=== PATIENT | female | born 2000 | race African-American/Black ===

== ENCOUNTER 2022-02-23 21:21 | Emergency (ER) | payer OTHER, SELFPAY ==
--- NOTE | ~2022-02-23 | XR_ITS ---
EXAMINATION: XR chest 1V portable DATE: 02/23/2022 23:55 INDICATION: COVID positive TECHNIQUE: frontal view of the chest was obtained. COMPARISON: None FINDINGS: The lungs are clear with no focal airspace opacities, pulmonary edema, pleural effusion or pneumothor ax. The cardiomediastinal silhouette is normal. Visualized bones and soft tissues are unremarkable. IMPRESSION: 1. Normal chest radiograph. Reviewed, dictated and finalized at location A. IMPRESSION: 1. Normal chest radiograph.
[2022-02-23 21:31] VITALS: BP 125/84; PULSE 81; RESP 19; TEMP 37.2; O2SAT 100
--- NOTE | 2022-02-23 23:18 | PC.NURSE ---
Assumed care of pt, pt is alert and upright on stretcher. Lights dimmed. Discussed POC.
[2022-02-23 23:41] LABS: SARS-CoV-2 RNA PCR Positive
[2022-02-23] MEDS: SODIUM CHLORIDE 0.9% IV 1,000 ML 999 ML IV CONT (23:57)
[2022-02-23] MEDS: KETOROLAC 30 MG/ML VIAL (*BKC) IV PUSH (23:57)
[2022-02-24 00:01] LABS: Basophils Percent Auto 0.2 % (0.2-1.2); Eosinophils Percent Auto 0.4 % (0-4.4); Hemoglobin 12.7 g/dL (12.0-15.0); Immature Granulocyte Absolute 0.02 K/mm3 (0.00-0.031); Immature Granulocyte Percent A 0.2 % (0-0.5); Lymphocytes Percent Auto 3.3 % (18.3-44.2); Mean Corpuscular HGB Conc 34.3 g/dl (32-36); Mean Corpuscular Hemoglobin 30.8 pg (26-34); Mean Corpuscular Volume 89.6 fl (80-100); Mean Platelet Volume 9.9 fl (7.4-10.4); Monocytes Absolute Auto 1.6 K/mm3 (0.1-0.6); Monocytes Percent Auto 18.2 % (2.6-8.5); Neutrophils Percent Auto 77.7 % (45.5-73.1); Platelet Count Result 253 k/mm3 (150-375); Red Blood Count 4.13 M/mm3 (4.2-5.4); Red Cell Distribution Width 13.2 % (11.5-14.5)
[2022-02-24 00:16] LABS: Alanine Aminotransferase 21 U/L (6-35); Albumin Level 4.6 g/dL (3.5-5.1); Alkaline Phosphatase 79 U/L (38-126); Anion Gap 10 mmol/L (8-16); Aspartate Amino Transferase 31 U/L (14-36); Bilirubin,Total 0.5 mg/dL (0.2-1.3); Blood Urea Nitrogen 9 mg/dL (7-17); Calcium 9.5 mg/dL (8.4-10.2); Carbon Dioxide 20 mmol/L (22-30); Chloride 106 mmol/L (98-107); Estimated CRCL calculation 90 ml/min; Estimated Glomerular Filt Rate > 60; Glucose 89 mg/dL (65-110); Potassium 3.9 mmol/L (3.4-5.0); Sodium 136 mmol/L (137-145)
--- NOTE | 2022-02-24 00:20 | ED.GENADULT ---
HPI - General Adult General Chief complaint: Headache Stated complaint: bodyache, headache Time Seen by Provider: 02/23/22 22:42 Source: patient Mode of arrival: ambulatory Limitations: no limitations History of Present Illness HPI narrative: Patient is a 21-year-old female who presents to the ED with report of headache and myalgias. Patient reports she woke up this morning feeling unwell. She reports having a headache and diffuse pain throughout her body. She has not tried anything for symptoms at home. She denies any fever, chills, vision changes, dizziness, lightheadedness, sore throat, rhinorrhea, chest congestion, cough, abdominal pain, nausea, vomiting, urinary symptoms, CP, SOB. Denies any recent sick contacts. She is not vaccinated for COVID. Related Data Allergies Allergy/AdvReac Type Severity Reaction Status Date / Time morphine Allergy Hives Verified 02/23/22 23:55 Review of Systems Review of Systems: CONSTITUTIONAL: Denies fever, chills, or sweats. EYES: Denies visual changes. ENT: Denies rhinorrhea, congestion, sore throat. CARDIOVASCULAR: Denies chest pain. RESPIRATORY: Denies cough or dyspnea. GASTROINTESTINAL: Denies abdominal pain, nausea, vomiting, or diarrhea. GENITOURINARY: Denies dysuria or hematuria. MUSCULOSKELETAL: Reports diffuse myalgias. NEUROLOGIC: Reports EPSTEIN. Denies dizziness, lightheadedness, numbness, or weakness. All systems reviewed & are unremarkable except as noted in HPI and below PMFSH Past Medical History Medical History (Updated 02/24/22 @ 00:24 by Matilde Gray PA-C) Genital herpes Surgical History Surgical History (Updated 02/24/22 @ 00:21 by Matilde Gray PA-C) No pertinent past surgical history Social History Social History (Updated 02/24/22 @ 00:21 by Matilde Gray PA-C) Smoking status: Never smoker Substance use: current Substance use type: marijuana Exam Narrative: GENERAL: Well appearing, well-nourished, non-toxic, in mild acute distress. HEAD: Normocephalic, atraumatic. EYES: PERRL/EOMI, conjunctivae clear bilaterally. THROAT: Pharynx clear, no exudate. MMs moist. NECK: Supple. No adenopathy, no masses. No midline spinal tenderness. No meningeal signs. RESPIRATORY: Airway patent, respirations nonlabored. Clear to auscultation bilaterally, no rales, rhonchi, wheezing. CARDIOVASCULAR: Regular rate and rhythm without murmurs, rubs, or gallops. Peripheral pulses 2+ and equal bilaterally. ABDOMINAL: Soft, nontender, nondistended, no hepatosplenomegaly. Normoactive BS. MUSCULOSKELETAL: Moves all extremities. Strength/ROM intact without gross deformities. SKIN: Warm, dry, normal color. No rashes. NEURO: A&O X3. Speech clear. Cranial nerves II-XII grossly intact. Steady gait. No ataxic movements. PSYCHIATRIC: Appropriate mood and affect. Normal interaction. Course Vital Signs Vital signs: Vital Signs Temperature 98.9 F 02/23/22 21:31 Pulse Rate 81 02/23/22 21:31 Respiratory Rate 19 02/23/22 21:31 Blood Pressure 125/84 02/23/22 21:31 Pulse Oximetry 100 02/23/22 21:31 Oxygen Delivery Room Air 02/23/22 21:31 Temperature 98.9 F 02/23/22 21:31 Pulse Rate 74 02/24/22 00:36 Respiratory Rate 15 02/24/22 00:36 Blood Pressure 116/73 02/24/22 00:36 Pulse Oximetry 100 02/24/22 00:36 Oxygen Delivery Room Air 02/23/22 21:31 Medical Decision Making MDM Narrative Medical decision making narrative: Patient presented to ED with report of headache and diffuse myalgias. Vital signs stable upon arrival. Patient writhing around in bed. Had not taken anything for symptoms prior to arrival. No other symptoms reported. COVID testing in ED positive. Basic blood work obtained and unremarkable. Does show lymphopenia, consistent with COVID diagnosis. Chest x-ray without acute findings. Patient feeling significantly better after fluids, Toradol, Tylenol. She will be discharged home at this time and advised to self quar
[2022-02-24 00:36] VITALS: BP 116/73; PULSE 74; RESP 15; O2SAT 100
== END 2022-02-24 00:37 | disposition home or self-care (01) ==
PROVIDERS: Physician Assistant; Emergency Provider Emergency Medicine
DX: U07.1 COVID-19 (principal)
CPT/HCPCS: 36415; 71045; 80053; 85025; 96365; 96375; 99284; C9803; J0131; J1885; J7030; U0003; U0005

== ENCOUNTER 2023-04-08 11:06 | Emergency (ER) | payer OTHER, SELFPAY ==
--- NOTE | ~2023-04-08 | XR_ITS ---
EXAMINATION: XR chest 1V portable DATE: 04/08/2023 13:15 INDICATION: COVID positive with cough TECHNIQUE: frontal view of the chest was obtained. COMPARISON: Chest radiograph dated 02/23/2022 FINDINGS: The lungs remain clear with no focal airspace opacities, pulmonary edema, pleural effusion or pneumot horax. The cardiomediastinal silhouette is normal. Visualized bones and soft tissues are unremarkable . IMPRESSION: 1. No acute cardiopulmonary disease. Reviewed, dictated and finalized at location A.
[2023-04-08 11:10] VITALS: BP 124/73; PULSE 78; RESP 22; TEMP 37.4; O2SAT 100
--- NOTE | 2023-04-08 12:45 | ED.URI ---
HPI - URI/Sore Throat General Chief Complaint: Upper Respiratory Infection Stated Complaint: Covid Pos, worsening symptoms Time Seen by Provider: 04/08/23 12:04 History of Present Illness HPI Narrative: Patient is a 22-year-old female presenting with URI symptoms. Patient states that she had a headache and sore throat yesterday so she tested herself for COVID which was positive. She woke up this morning and states that she felt 1 million times worse. States that her head was throbbing and she kept vomiting. States that it feels hard to breathe because her nose is so stuffed up. States that her chest feels sore when she takes a breath or coughs. Denies fevers or chills, numbness or weakness, lightheadedness, abdominal pain, dysuria, leg swelling. States that she had COVID about a year ago. Related Data Allergies Allergy/AdvReac Type Severity Reaction Status Date / Time morphine Allergy Hives Verified 02/23/22 23:55 Review of Systems Review of Systems: All systems reviewed & are unremarkable except as noted in HPI and below PMFSH Past Medical History Medical History Genital herpes Surgical History Surgical History No pertinent past surgical history Social History Social History Smoking status: Never smoker Substance use: current Substance use type: marijuana Exam Narrative: GENERAL: Well-appearing, well-nourished, and in no acute distress. Pleasant and cooperative HEAD: Normocephalic, atraumatic. EYES: PERRLA and EOMI. ENT: + Nasal congestion. Mucous membranes moist. NECK: Supple. CHEST: Clear to auscultation. No respiratory distress. HEART: Regular rate and rhythm ABDOMEN: Soft, nontender, nondistended EXTREMITIES: Normal range of motion. No edema. SKIN: Warm, dry, no rash. NEURO: No focal deficits. Alert and oriented x3. PSYCH: Normal mood and affect. Course Vital Signs Vital signs: Vital Signs Temperature 99.3 F 04/08/23 11:10 Pulse Rate 78 04/08/23 11:10 Respiratory Rate 22 H 04/08/23 11:10 Blood Pressure 124/73 04/08/23 11:10 Pulse Oximetry 100 04/08/23 11:10 Oxygen Delivery Room Air 04/08/23 11:10 Temperature 99.3 F 04/08/23 11:10 Pulse Rate 78 04/08/23 11:10 Respiratory Rate 22 H 04/08/23 11:10 Blood Pressure 124/73 04/08/23 11:10 Pulse Oximetry 100 04/08/23 11:10 Oxygen Delivery Room Air 04/08/23 11:10 MDM - URI/Sore Throat MDM Narrative Medical decision making narrative: Patient is a 22-year-old female presenting with URI symptoms. Vitals are stable. Patient is well-appearing and in no acute distress. Exam remarkable for the above. Plan for basic labs, chest x-ray, fluids, Toradol. Blood work and UA are unremarkable. Chest x-ray without acute abnormalities. On reevaluation, the patient is resting comfortably. Feel she is safe for outpatient management. Discussed appropriate supportive care and return precautions. Advised PCP follow-up. Patient voiced understanding and is agreeable with plan. Discharged in stable condition. Differential Diagnosis Differential diagnosis: Likely upper respiratory infection, sinusitis and viral infection Medical Records Attestation: I reviewed the patient's medical records. Lab Data Attestation: I reviewed the patient's lab results. 04/08/23 13:23 04/08/23 13:23 Labs: Lab Results 04/08/23 04/08/23 Range/Units 13:23 14:19 WBC 9.6 (4.5-10.0) K/mm3 RBC 4.23 (4.2-5.4) M/mm3 Hgb 13.0 (12.0-15.0) g/dL Hct 38.1 (37.0-47.0) % MCV 90.1 (80-100) fl MCH 30.7 (26-34) pg MCHC 34.1 (32-36) g/dl RDW 13.1 (11.5-14.5) % Plt Count 280 (150-375) k/mm3 MPV 10.0 (7.4-10.4) fl Immature Gran % (Auto) 0.2 (0-0.5) % Neut % (Auto) 76.7 H (45.5-73.1) % Lymph % (Aut
[2023-04-08] MEDS: SODIUM CHLORIDE 0.9% IV 1,000 ML 999 ML IV CONT (13:15)
[2023-04-08] MEDS: KETOROLAC 15 MG/ML VIAL (*BKC) IV PUSH (13:15)
[2023-04-08] MEDS: ONDANSETRON INJ 4 MG/2 ML VIAL IV PUSH (13:15)
[2023-04-08 13:35] LABS: Basophils Percent Auto 0.3 % (0.2-1.2); Eosinophils Absolute Auto 0.1 K/mm3 (0-0.3); Eosinophils Percent Auto 1.5 % (0-4.4); Hematocrit 38.1 % (37.0-47.0); Immature Granulocyte Absolute 0.02 K/mm3 (0.00-0.031); Immature Granulocyte Percent A 0.2 % (0-0.5); Lymphocytes Absolute Auto 0.99 K/mm3 (0.9-3.2); Lymphocytes Percent Auto 10.3 % (18.3-44.2); Mean Corpuscular HGB Conc 34.1 g/dl (32-36); Mean Corpuscular Hemoglobin 30.7 pg (26-34); Mean Corpuscular Volume 90.1 fl (80-100); Monocytes Absolute Auto 1.1 K/mm3 (0.1-0.6); Neutrophils Absolute Auto 7.4 K/mm3 (1.3-6.7); Neutrophils Percent Auto 76.7 % (45.5-73.1); Platelet Count Result 280 k/mm3 (150-375); Red Blood Count 4.23 M/mm3 (4.2-5.4); Red Cell Distribution Width 13.1 % (11.5-14.5); White Blood Count 9.6 K/mm3 (4.5-10.0)
[2023-04-08 13:50] LABS: Anion Gap 13 mmol/L (8-16); Carbon Dioxide 21 mmol/L (22-30); Chloride 109 mmol/L (98-107); Potassium 3.9 mmol/L (3.4-5.0); Sodium 143 mmol/L (137-145)
[2023-04-08 13:51] LABS: Alanine Aminotransferase 25 U/L (6-35); Albumin Level 4.3 g/dL (3.5-5.1); Alkaline Phosphatase 58 U/L (38-126); Aspartate Amino Transferase 46 U/L (14-36); Bilirubin,Total 0.3 mg/dL (0.2-1.3); Blood Urea Nitrogen 10 mg/dL (7-17); Calcium 8.8 mg/dL (8.4-10.2); Estimated CRCL calculation 106 ml/min; Estimated Glomerular Filt Rate > 60; Glucose 80 mg/dL (65-110); Lipase 40 U/L (23-300)
[2023-04-08 14:28] LABS: Appearance Urine Clear (Clear); Bilirubin Urine Negative (Negative); Blood Urine Negative (Negative); Color Urine Yellow (Yellow); Glucose Urine UA Negative (Negative); Ketones Urine Negative (Negative); Leukocyte Esterase Ur Negative LEU/UL (Negative); Nitrate Urine Negative (Negative); Protein Urine Negative (Negative); Specific Grav Ur 1.017 (1.001-1.035); pH Urine 6.5 (5.0-9.0)
[2023-04-08 14:31] LABS: Add Urine Microscopic? NO
== END 2023-04-08 15:00 | disposition home or self-care (01) ==
PROVIDERS: Emergency Provider Emergency Medicine
DX: U07.1 COVID-19 (principal); Z86.16 Personal history of COVID-19
CPT/HCPCS: 36415; 71045; 80053; 81003; 83690; 85025; 96361; 96374; 96375; 99284; J1885; J2405; J7030

== ENCOUNTER 2023-07-05 09:05 | Emergency (ER) | payer OTHER, SELFPAY ==
[2023-07-05 09:13] VITALS: BP 140/73; PULSE 69; RESP 18; TEMP 36.2; O2SAT 100
[2023-07-05 11:05] VITALS: BP 101/90; PULSE 71; RESP 20; O2SAT 100
[2023-07-05 12:16] VITALS: BP 108/68; PULSE 89; RESP 16; O2SAT 100
--- NOTE | 2023-07-05 12:38 | ECG_ITS ---
Measurements Intervals Steele Rate: 62 P: 8 NH: 145 QRS: 12 QRSD: 90 T: -31 QT: 403 QTc: 412 Interpretive Statements SINUS RHYTHM LOW QRS VOLTAGE IN PRECORDIAL LEADS CANNOT RULE OUT SEPTAL INFARCT, AGE INDETERMINATE BORDERLINE T WAVE ABNORMALITY- ANTEROLAT/INF LEADS BASELINE ARTIFACT- V5 ABNORMAL ECG NO PREVIOUS ECG AVAILABLE FOR COMPARISON Electronically Signed On 07-05-2023 13:59:27 [employer]ACHINE [employer]PERATOR AND TENDER by Adilson Scott D.O.
--- NOTE | 2023-07-05 12:48 | ED.GENADULT ---
HPI - General Adult General Chief complaint: Unspecified Stated complaint: chest pain Time Seen by Provider: 07/05/23 11:26 History of Present Illness HPI narrative: 22-year-old female presents to the emergency department for evaluation of substernal chest pain has been going on since Tuesday. Patient describes chest pain that is worsened with deep inspiration. Patient denies any prior history of coronary artery disease and denies any prior history of PE or DVT. Patient states that her daughters to have colds at home and patient also has a cough. Related Data Allergies Allergy/AdvReac Type Severity Reaction Status Date / Time morphine Allergy Hives Verified 02/23/22 23:55 Review of Systems Review of Systems: All systems reviewed & are unremarkable except as noted in HPI and below PMFSH Past Medical History Medical History Genital herpes Surgical History Surgical History No pertinent past surgical history Social History Social History Smoking status: Never smoker Substance use: current Substance use type: marijuana Exam Narrative: APPEARANCE: Well appearing, no pain, no distress, well-nourished. HEAD: normocephalic, atraumatic. EYES: PERRLA/EOMI, conjunctivae clear. NOSE: Normal no drainage EARS:TMS clear with good light reflex. THROAT: Pharynx clear, no exudate. NECK: Supple. No adenopathy, no masses. RESPIRATORY: Airway patent, respirations nonlabored. Clear to auscultation bilaterally, no rales, rhonchi, wheezing. CARDIOVASCULAR: Regular rate and rhythm without murmurs rubs or gallops. ABDOMINAL: Soft, nontender, nondistended, normal bowel sounds MUSCULOSKELETAL: Moves all extremities. Strength/ROM intact, No edema, No calf tenderness. NEURO: Alert. Cranial nerves II through XII intact. grossly intact SKIN: Warm, dry. Normal Color Course Course Emergency Course: 22-year-old female presenting to the emergency department for evaluation of pleuritic chest pain. Patient was negative for COVID, influenza and RSV. Patient's D-dimer is not elevated. Chest x-ray showed no acute cardiopulmonary abnormality. Suspect pleurisy versus costochondritis. Low concern for ACS, pulmonary embolism or pneumonia. Patient and family were updated on the results of the workup. All questions concerns were addressed. Patient was well-appearing at time of discharge. Vital Signs Vital signs: Vital Signs Temperature 97.1 F L 07/05/23 09:13 Pulse Rate 69 07/05/23 09:13 Respiratory Rate 18 07/05/23 09:13 Blood Pressure 140/73 07/05/23 09:13 Pulse Oximetry 100 07/05/23 09:13 Oxygen Delivery Room Air 07/05/23 09:13 Temperature 98.0 F 07/05/23 14:54 Pulse Rate 69 07/05/23 14:54 Respiratory Rate 16 07/05/23 14:54 Blood Pressure 124/76 07/05/23 14:54 Pulse Oximetry 100 07/05/23 14:54 Oxygen Delivery Room Air 07/05/23 09:13 Medical Decision Making Differential Diagnosis Differential Diagnosis: pneumonia, COVID RSV and influenza Vital Signs Vital Signs: Vital Signs Temperature 97.1 F L 07/05/23 09:13 Pulse Rate 69 07/05/23 09:13 Respiratory Rate 18 07/05/23 09:13 Blood Pressure 140/73 07/05/23 09:13 Pulse Oximetry 100 07/05/23 09:13 Oxygen Delivery Room Air 07/05/23 09:13 Temperature 98.0 F 07/05/23 14:54 Pulse Rate 69 07/05/23 14:54 Respiratory Rate 16 07/05/23 14:54 Blood Pressure 124/76 07/05/23 14:54 Pulse Oximetry 100 07/05/23 14:54 Oxygen Delivery Room Air 07/05/23 09:13 Lab Data Lab results reviewed: Yes I reviewed the patient's lab results. 07/05/23 12:56 07/05/23 12:56 Labs: Lab Results 07/05/23 Range/Units 12:56 WBC 9.4 (4.5-10.0) K/mm3 RBC 3.82 L (4.2-5.4) M/mm3 Hgb 11.6 L (12.0-15.0
[2023-07-05 13:01] VITALS: BP 126/79; PULSE 73; RESP 18; O2SAT 99
[2023-07-05 13:04] LABS: Basophils Percent Auto 0.3 % (0.2-1.2); Eosinophils Absolute Auto 0.4 K/mm3 (0-0.3); Eosinophils Percent Auto 3.8 % (0-4.4); Hematocrit 34.6 % (37.0-47.0); Hemoglobin 11.6 g/dL (12.0-15.0); Immature Granulocyte Absolute 0.02 K/mm3 (0.00-0.031); Immature Granulocyte Percent A 0.2 % (0-0.5); Lymphocytes Absolute Auto 2.23 K/mm3 (0.9-3.2); Lymphocytes Percent Auto 23.7 % (18.3-44.2); Mean Corpuscular HGB Conc 33.5 g/dl (32-36); Mean Corpuscular Hemoglobin 30.4 pg (26-34); Mean Corpuscular Volume 90.6 fl (80-100); Monocytes Absolute Auto 0.8 K/mm3 (0.1-0.6); Monocytes Percent Auto 8.9 % (2.6-8.5); Neutrophils Absolute Auto 5.9 K/mm3 (1.3-6.7); Neutrophils Percent Auto 63.1 % (45.5-73.1); Platelet Count Result 258 k/mm3 (150-375); Red Blood Count 3.82 M/mm3 (4.2-5.4); Red Cell Distribution Width 13.9 % (11.5-14.5); White Blood Count 9.4 K/mm3 (4.5-10.0)
[2023-07-05 13:28] LABS: Alanine Aminotransferase 14 U/L (6-35); Albumin Level 3.8 g/dL (3.5-5.1); Alkaline Phosphatase 63 U/L (38-126); Anion Gap 4 mmol/L (8-16); Aspartate Amino Transferase 26 U/L (14-36); Bilirubin,Total 0.5 mg/dL (0.2-1.3); Blood Urea Nitrogen 7 mg/dL (7-17); Calcium 8.9 mg/dL (8.4-10.2); Carbon Dioxide 26 mmol/L (22-30); Chloride 107 mmol/L (98-107); Estimated CRCL calculation 106 ml/min; Estimated Glomerular Filt Rate > 60; Glucose 84 mg/dL (65-110); Sodium 137 mmol/L (137-145)
[2023-07-05 13:58] LABS: D Dimer 0.33 ug/mL (<0.48)
[2023-07-05 14:00] VITALS: BP 110/68; PULSE 66; RESP 16; O2SAT 99
[2023-07-05 14:44] LABS: Influenza A QL RT-PCR Negative (Negative); Influenza B QL RT-PCR Negative (Negative); RSV RNA, RT-PCR Negative (Negative); SARS-CoV-2 RNA PCR Negative (Negative)
[2023-07-05 14:54] VITALS: BP 124/76; PULSE 69; RESP 16; TEMP 36.7; O2SAT 100
== END 2023-07-05 15:01 | disposition home or self-care (01) ==
PROVIDERS: Emergency Provider Emergency Medicine
DX: R07.89 Other chest pain (principal); Z20.822 Contact with and (suspected) exposure to COVID-19
CPT/HCPCS: 36415; 80053; 81025; 85025; 85380; 87637; 93005; 99283

== ENCOUNTER 2023-10-27 09:04 | Emergency (ER) | payer OTHER, SELFPAY ==
--- NOTE | ~2023-10-27 | CT_ITS ---
EXAMINATION: CT pelvis w con DATE: 10/27/2023 11:56 INDICATION: Rectal pain and bleeding with hemorrhoids. TECHNIQUE: High resolution computed tomography (CT) of the pelvis with 100 mL Omnipaque-350 was perfo rmed without intravenous contrast. Additional sagittal and coronal reconstructions were performed. Au tomated exposure control and iterative reconstruction technique were employed. The dose-length produc t was 265.53 mGy-cm. COMPARISON: None FINDINGS: Visualized caudal aspect of the liver, gallbladder and kidneys are normal. Bowels are unremarkable wi th no obstruction or abnormal wall thickening. Normal appendix. 2.5 cm peripherally enhancing corpus luteum cyst at the right ovary. Left ovary, retroverted uterus and bladder are unremarkable. No absce ss or free intraperitoneal gas or fluid. No pathologically enlarged pelvic or inguinal lymphadenopath y. Bones are unremarkable. IMPRESSION: 1. 2.5 similar right ovarian corpus luteum cyst. No other acute intrapelvic process. Specifically no abscess. Reviewed, dictated and finalized at location A. IMPRESSION: 1. 2.5 similar right ovarian corpus luteum cyst. No other acute intrapelvic pro cess. Specifically no abscess.
[2023-10-27 09:05] VITALS: BP 131/77; PULSE 86; RESP 16; TEMP 36.7; O2SAT 100
--- NOTE | 2023-10-27 10:28 | ED.GENADULT ---
HPI - General Adult General Chief complaint: Abdominal Pain Stated complaint: HEMORRHOID PROBLEM Time Seen by Provider: 10/27/23 09:33 Source: patient Mode of arrival: ambulatory Limitations: no limitations History of Present Illness HPI narrative: Patient is a 23-year-old female who presents the ED with report of rectal pain. Patient reports history of hemorrhoids over the last 3 years since giving to her daughter. She reports over the last couple of weeks, she has had increased pain, increased bleeding, pain with BMs, pain with sitting or lying on her back. Had recurrent episode of bleeding last night. Reports frequent constipation, last BM this morning. She has been using a [id number] hemorrhoid cream with only minimal improvement of the itching. Denies abdominal pain, nausea, vomiting, fevers, dizziness, lightheadedness. Related Data Allergies Allergy/AdvReac Type Severity Reaction Status Date / Time morphine Allergy Hives Verified 02/23/22 23:55 Review of Systems Review of Systems: CONSTITUTIONAL: Denies fever, chills, or sweats. GASTROINTESTINAL: See HPI. GENITOURINARY: Denies dysuria or hematuria. NEUROLOGIC: Denies headache, dizziness, numbness, or weakness. All systems reviewed & are unremarkable except as noted in HPI and below PMFSH Past Medical History Medical History Genital herpes Surgical History Surgical History No pertinent past surgical history Social History Social History Smoking status: Never smoker Substance use: current Substance use type: marijuana Exam Narrative: GENERAL: Well appearing, well-nourished, non-toxic, in no acute distress. HEAD: Normocephalic, atraumatic. RESPIRATORY: Airway patent, respirations nonlabored. CARDIOVASCULAR: Regular rate and rhythm. ABDOMINAL: Soft, nontender, nondistended. Normoactive BS. RECTAL: Normal rectal tone. Large external hemorrhoid with smaller hemorrhoid surrounding. No evidence of thrombosis. No active bleeding or drainage. Focal tenderness to palpation. Tenderness extending into 3 o'clock location in perirectal region. No significant induration or erythema appreciated in perirectal region. MUSCULOSKELETAL: Moves all extremities. No gross deformities. SKIN: Warm, dry, normal color. NEURO: A&O X3. Speech clear. PSYCHIATRIC: Appropriate mood and affect. Normal interaction. Course Vital Signs Vital signs: Vital Signs Temperature 98.1 F 10/27/23 09:05 Pulse Rate 86 10/27/23 09:05 Respiratory Rate 16 10/27/23 09:05 Blood Pressure 131/77 10/27/23 09:05 Pulse Oximetry 100 10/27/23 09:05 Oxygen Delivery Room Air 10/27/23 09:05 Temperature 98.4 F 10/27/23 12:40 Pulse Rate 63 10/27/23 12:40 Respiratory Rate 17 10/27/23 12:40 Blood Pressure 121/84 10/27/23 12:40 Pulse Oximetry 100 10/27/23 12:40 Oxygen Delivery Room Air 10/27/23 09:05 Medical Decision Making MDM Narrative Medical decision making narrative: Patient presented to ED with hemorrhoids, rectal pain, rectal bleeding. Vitals are stable. No evidence of hemodynamic instability. Patient with evidence of external hemorrhoids on exam. No evidence of thrombosis at this time. She did have some tenderness throughout perirectal region on exam. Will obtain lab and imaging to further evaluate and rule out other causes of rectal pain. Laboratory studies unremarkable. No leukocytosis. Stable H&H. CT of pelvis showing right ovarian cyst, no other abnormalities and no evidence of perirectal or perianal abscess. Patient updated on this. She does not have any focal right lower quadrant tenderness on exam, advised close follow-up with OBGYN for further evaluation. Patient will be discharged. Will give referral to General surgery f
[2023-10-27 11:09] LABS: Basophils Percent Auto 0.4 % (0.2-1.2); Eosinophils Absolute Auto 0.1 K/mm3 (0-0.3); Eosinophils Percent Auto 1.2 % (0-4.4); Hematocrit 38.7 % (37.0-47.0); Immature Granulocyte Absolute 0.11 K/mm3 (0.00-0.031); Immature Granulocyte Percent A 1.2 % (0-0.5); Lymphocytes Absolute Auto 2.29 K/mm3 (0.9-3.2); Lymphocytes Percent Auto 24.9 % (18.3-44.2); Mean Corpuscular HGB Conc 33.6 g/dl (32-36); Mean Corpuscular Hemoglobin 30.4 pg (26-34); Mean Corpuscular Volume 90.4 fl (80-100); Monocytes Absolute Auto 0.5 K/mm3 (0.1-0.6); Monocytes Percent Auto 5.9 % (2.6-8.5); Neutrophils Absolute Auto 6.1 K/mm3 (1.3-6.7); Neutrophils Percent Auto 66.4 % (45.5-73.1); Platelet Count Result 319 k/mm3 (150-375); Red Blood Count 4.28 M/mm3 (4.2-5.4); Red Cell Distribution Width 13.2 % (11.5-14.5); White Blood Count 9.2 K/mm3 (4.5-10.0)
[2023-10-27 11:22] LABS: Anion Gap 6 mmol/L (8-16); Blood Urea Nitrogen 10 mg/dL (7-17); Calcium 9.7 mg/dL (8.4-10.2); Carbon Dioxide 22 mmol/L (22-30); Chloride 109 mmol/L (98-107); Estimated CRCL calculation 121 ml/min; Estimated Glomerular Filt Rate > 60; Glucose 86 mg/dL (65-110); Potassium 4.3 mmol/L (3.4-5.0); Sodium 137 mmol/L (137-145)
[2023-10-27 11:27] LABS: SPREG INTERNAL CONTROL Positive; Serum Qual hCG Negative
[2023-10-27] MEDS: ACETAMINOPHEN 500 MG TABLET 1000 MG PO (11:27)
[2023-10-27] MEDS: KETOROLAC 30 MG/ML VIAL (*BKC) IV PUSH (11:31)
[2023-10-27 11:35] VITALS: BP 129/83; RESP 18; O2SAT 100
[2023-10-27 12:40] VITALS: BP 121/84; PULSE 63; RESP 17; TEMP 36.9; O2SAT 100
== END 2023-10-27 12:41 | disposition home or self-care (01) ==
PROVIDERS: Emergency Provider Physician Assistant; Referring Provider Emergency Medicine
DX: K64.4 Residual hemorrhoidal skin tags (principal); N83.11 Corpus luteum cyst of right ovary
CPT/HCPCS: 36415; 72193; 80048; 84703; 85025; 96374; 99284; A9270; J1885; Q9967

== ENCOUNTER 2023-12-07 08:07 | Day surgery (SDC) | payer OTHER, SELFPAY ==
[2023-11-28 13:04] VITALS: BMI 24.3
--- NOTE | 2023-11-28 13:05 | PC.NURSE ---
Report to the Outpatient Waiting Room, entrance under the green pavilion located off [facility], at time _0930_ on date _[id number]_. Planned Procedure Time: _1130_. Time changes happen often and if your time is changed the preop area will call you the afternoon before. - You and your visitor will be asked to self-screen and do not enter if you have any COVID symptoms. - A mask is optional within the hospital at this time. Patients may have clear liquids (water, carbonated beverages, clear teas, apple juice) until 3 hours prior to surgery with a maximum of 20 ounces. - No food from midnight until time of surgery Follow instructions given you by Dr Smith's office. Take the following medications with a SIP of water the morning of surgery: ____None DO NOT STOP ANY OF YOUR OTHER PRESCRIPTION MEDICATIONS PRIOR TO SURGERY ?EXCEPT THE FOLLOWING Medications to discontinue per physician None Date to take last dose Please no make-up, nail armenian, hairspray, perfume, deodorant, or body powder the day of surgery. No jewelry (including any body piercings) or valuables the day of surgery, leave them at home. Please take a shower or bath the night before, or the morning of, surgery with an antibacterial soap. Wear comfortable, loose fitting clothing. - Jewelry must be removed prior to entering the operating room. Rings and piercings that are not removed may be cut off. - The hospital will not accept responsibility for valuables. - Please leave all valuables, including medications, at home the day of surgery. If you are going home after surgery, a licensed full service vending driver must drive you home. - NO public transportation without another adult if you receive anesthesia. - We recommend that an adult stay with you for 24 hours following discharge. - We also recommend that you do not drive, make important decision, drink alcoholic beverages, or take any drugs that were not prescribed by your health care provider for at least 24 hours after your discharge time. Follow any additional instructions given to you from your surgeon. If you or anyone in your household have experienced Covid symptoms in the past week, please notify your surgeon or the nurse liaison at the phone number below for possible testing. Telephone instructions given to _Karen__and asked if any additional questions and then verbalized understanding. Patient advised to call surgeon office or pre surgery nurse liaison [phone] if any additional questions.
[2023-12-07] VITALS (10 sets, daily range): BP systolic 112–144; BP diastolic 70–96; PULSE 67–98; RESP 14–22; TEMP 36.2–36.7; O2SAT 100
--- NOTE | 2023-12-07 09:51 | WPDHPUPDATE1 ---
History and Physical Update Update Date/Time: 12/07/23 09:51 History and Physical has been reviewed, including an updated exam of the patient. There are NO changes in the patient's condition. Risks, benefits, and alternatives have been discussed and questions answered. Patient agrees to proceed with procedure.
[2023-12-07] MEDS: LACTATED RINGERS 1,000 ML 30 ML IV CONT ×2 (10:15→12:24)
[2023-12-07] MEDS: KETOROLAC 15 MG/ML VIAL (*BKC) IV PUSH (10:17)
[2023-12-07] MEDS: ACETAMINOPHEN 500 MG TABLET 1000 MG PO (10:17)
--- NOTE | 2023-12-07 10:39 | P.PNAN_ITS ---
Anes - Initial Pre Proc Eval Procedure: Operation Date: 12/07/23 11:30 Proposed Procedures p Excision of Single Column External and Internal Hemorrhoids, Anal Sphincterotomy - Bert Smith MD Date/Time: 12/07/23 10:39 Surgeon: Bert Smith MD Pre Op Diagnosis: stage 4 internal and external hemorrhoids Patient Data Age: 23 Gender: F Height: 1.7 m Weight: 74 kg Last Vital Signs Temp 36.7 C 12/07/23 09:44 Pulse 72 12/07/23 09:44 Resp 16 12/07/23 09:44 BP 114/72 12/07/23 09:44 Pulse Ox 100 12/07/23 09:44 O2 Del Method Room Air 12/07/23 09:44 Allergies Allergy/AdvReac Type Severity Reaction Status Date / Time morphine Allergy Hives Verified 12/07/23 09:53 Home Medications Medication Instructions Recorded Confirmed Type No Home Medications 11/28/23 12/07/23 History Patient hx anesthesia problems: none Family hx anesthesia problems: none Results Review: All pre-operative results and documents have been reviewed as part of the pre- operative evaluation. [facility] Past Medical History Medical History Genital herpes Surgical History Surgical History No pertinent past surgical history Social History Social History Smoking status: Never smoker Tobacco type: cigarettes Alcohol intake: never Substance use: current Substance use type: marijuana Other substance usage details: Not often Living arrangements: with family Occupation/Education: occupation Additional occupation/education comments: [employer] Spiritual care concerns: No Anes - Eval Final PreProcedure Day of Procedure 12/07/23 10:39 Patient weight: overweight Heart: regular rate and rhythm Lungs: clear to auscultation Airway: Mallampati scale class II Neurological: alert and oriented Last oral intake: >/= 8 hours ASA classification: II Emergent: no Anesthetic plan: proceed Anesthesia type and monitoring: general ETT and standard monitoring Results Review: All pre-operative results and documents have been reviewed as part of the pre- operative evaluation. Informed Consent: The patient's anesthetic plan and its attendant risks and benefits were discussed with the patient/family/POA. Questions were solicited and answers provided to the satisfaction of the patient/family/POA.
[2023-12-07] MEDS: ceFAZolin 2 GM/D5W 50 ML 2 GM/50 ML BAG IVPB (11:30)
[2023-12-07] MEDS: BUPIVACAINE/EPINEPHRINE 0.5% 50 ML VIAL 40 ML INFILTRATE (12:17)
--- NOTE | 2023-12-07 12:56 | P.OP_ITS ---
Procedure Note - Detailed Date of Procedure 12/07/23 Pre-op Diagnosis stage 4 internal and external hemorrhoids, posterior anal fissure Post-op Diagnosis Same Procedure Performed Excision single column internal and external hemorrhoids, left lateral anal sphincterotomy Surgeon Bert Smith MD Air Defense Control Officer Corina Nguyen, [facility] Anesthesia General and Local (0.5% Marcaine with epinephrine) Indications Patient is a 23-year-old woman who has had problems with hemorrhoids since 2019 when she had a baby. She has noticed rectal bleeding and a protrusion from the rectum. She also has severe pain with bowel movement. She was seen in the office and found to have a single column, right posterior, stage IV prolapsed internal and external hemorrhoid. She also had a posterior midline anal fissure. She is taken to surgery at this time for excision of the single column of hemorrhoids as well as left lateral anal sphincterotomy. Findings As above-chronically prolapsed right posterior internal hemorrhoid associated with large external hemorrhoid, posterior midline anal fissure with markedly increased internal sphincter tone. Description of Procedure Patient was taken to surgery and induced into general anesthesia. She was turned and placed in prone violeta-knife position. The buttocks were taped apart. Prep and drape was then carried out. A small Hill-Hampton anoscope was used to examine the anal canal and distal rectum. Findings were as above. I then used 0.5% Marcaine with epinephrine to in excess sized the perianal skin and sphincter muscle. 20 cc was infiltrated deep subdermal. 20 cc was infiltrated intra sphincteric. I then used a medium Hill-Hampton anoscope and introduced it. A small incision was made in the left lateral position over the lower 3rd of the internal sphincter muscle. Using a curved clamp I was able to bring the sphincter muscle up into the wound. It was divided with the cautery. No significant bleeding was noted. I then went to the patient's right side. A large Hill-Hampton anoscope was placed in the left anterior position. I excised the right posterior internal and external hemorrhoids. This was a single column. I then closed the wound with running locking 3-0 chromic suture. The hemorrhoids were sent as a specimen in formalin. The anal canal was again examined and no other pathology was noted. The rectum was dressed with Xeroform gauze, bulky fluffs, tape and Promise panties. Patient was then returned to a supine position and awakened. She was extubated and taken to recovery in good condition. Sponge needle counts were correct x2. Estimated Blood Loss -5 Drains No Packing No Pathology Yes (Right posterior complex internal and external hemorrhoids) Complications No immediate complications Condition Stable Disposition PACU [facility] Billing Surgery - Charge Forward: Surgery Billing (Excision single column internal and external hemorrhoids: CPT code 48679. Lateral internal sphincterotomy: CPT code 41579)
== END 2023-12-07 14:48 | disposition home or self-care (01) ==
PROVIDERS: Visit Provider Surgery
PROC: (CPT 46255; principal; 2023-12-07 11:30)
DX: K64.3 Fourth degree hemorrhoids (principal); K60.2 Anal fissure, unspecified
CPT/HCPCS: 46255; 88304; A9270; J0330; J0690; J1100; J1885; J2250; J2405; J2704; J3010; J7120

== ENCOUNTER 2024-05-02 05:58 | Emergency (ER) | payer OTHER, SELFPAY ==
[2024-05-02 06:19] VITALS: BP 128/90; PULSE 86; RESP 15; TEMP 36.5; O2SAT 100
[2024-05-02 07:17] VITALS: BP 130/88; PULSE 77; RESP 17; O2SAT 100
[2024-05-02 07:48] LABS: BEDSIDEPREGUCG Negative (Negative)
[2024-05-02] MEDS: methocarbamoL 750 MG TABLET 1500 MG PO (08:09)
[2024-05-02] MEDS: HYDROcodone/acetaminophen (*CRX) 5-325 MG TABLET 1 TAB PO (08:09)
[2024-05-02] MEDS: LIDOCAINE 5% PATCH 1 PATCH TRANSDERM (08:09)
--- NOTE | 2024-05-02 08:11 | ED.GENADULT ---
HPI - General Adult General Chief complaint: Back Pain/Injury Stated complaint: back pain Time Seen by Provider: 05/02/24 06:59 History of Present Illness HPI narrative: 3-year-old female presenting with 3 weeks of back pain. Pain started while she was playing volleyball. It is in the right parathoracic area. It is worse with palpation and movement. It improves with rubbing. She has been taking Motrin Tylenol was concerned that the pain is still continuing. 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 She is frequently lifting people and her child. No fevers chills chest pain difficulty breathing abdominal pain. No weakness extremities urinary retention bowel sounds. Related Data Allergies Allergy/AdvReac Type Severity Reaction Status Date / Time morphine Allergy Hives Verified 05/02/24 06:25 [facility] Past Medical History Medical History (Updated 05/02/24 @ 08:15 by Skyler Quezada MD) Genital herpes Surgical History Surgical History (Updated 12/15/23 @ 10:51 by KAMILLE Scott) Hx of rectal sphincterotomy Excision single column internal and external hemorrhoids, left lateral anal sphincterotomy 12/07/23 Social History Social History (Updated 12/15/23 @ 10:51 by KAMILLE Scott) Smoking status: Never smoker Tobacco type: cigarettes Alcohol intake: never Substance use: current Substance use type: marijuana Other substance usage details: Not often Do You Feel Safe in your Home?: Yes Lack of Transportation: No Lack of Food: Never True Current Housing: I Have Housing Concerned About Future Housing: No Difficulty Paying Gas/Electric Bills: No Difficulty Paying for Meds: No Currently Unemployed: No Education: High School Diploma/GED Difficulty w/ Childcare or Family Care: No Living arrangements: with family Occupation/Education: occupation Additional occupation/education comments: FOOD [employer] TEAM MEMBER Spiritual care concerns: No Exam Narrative: APPEARANCE: No apparent distress. Head: atraumatic. EYES: EOMI, NOSE: Atraumatic Neck/back: Tenderness palpation in the right parathoracic muscles. No overlying skin changes. Muscles are soft touch. RESPIRATORY: No increased rate of breathing CARDIOVASCULAR: RRR, ABDOMINAL: Non-distended MUSCULOSKELETAl: No obvious deformities NEURO: Alert. Cranial nerves 2-12 grossly intact. Sensation light touch, motor function cerebellar function intact for 4 extremities. Gait exam was normal. SKIN:: Warm, dry. Normal color PSYCHIATRIC: Normal affect Course Vital Signs Vital signs: Vital Signs Temperature 97.7 F 05/02/24 06:19 Pulse Rate 86 05/02/24 06:19 Respiratory Rate 15 05/02/24 06:19 Blood Pressure 128/90 05/02/24 06:19 Pulse Oximetry 100 05/02/24 06:19 Oxygen Delivery Room Air 05/02/24 06:19 Temperature 97.7 F 05/02/24 06:19 Pulse Rate 77 05/02/24 07:17 Respiratory Rate 17 05/02/24 07:17 Blood Pressure 130/88 05/02/24 07:17 Pulse Oximetry 100 05/02/24 07:17 Oxygen Delivery Room Air 05/02/24 06:19 Medical Decision Making MDM Narrative Medical decision making narrative: -Course: 23-year-old female presenting ED with 3 weeks back pain. Back pain is clearly musculoskeletal. He started taking Motrin Tylenol. Muscle relaxers patches. Pain is probably not improving due to her physical job and lifting her child frequently. Patient given primary care follow-up and return precautions. -DDX includes but is not limited to: Muscle strain/spasm, neoplasm/ infarction/ infection -Social determinants of health: Works as a FOOD [employer] TEAM MEMBER, occasional alcohol and tobacco -Interventions: [place], Robaxin, lidocaine patch -Shared decision making / Disposition: Discharge -RX Motrin, Tylenol Robaxin, lidocaine Vital Signs Vital Signs: Vital Signs Temperature 97.7 F 05/02/24 06:19 Pulse Rate 86 05/02/24 06:19 Respiratory Rate 15 05/02/24 06:19 Blood Pressure 128/90
== END 2024-05-02 08:24 | disposition home or self-care (01) ==
PROVIDERS: Emergency Provider Emergency Medicine
DX: S29.012A Strain of muscle and tendon of back wall of thorax, initial encounter (principal); X58.XXXA Exposure to other specified factors, initial encounter; Y93.68 Activity, volleyball (beach) (court)
CPT/HCPCS: 81025; 99283; A9270

== ENCOUNTER 2024-08-09 16:09 | Emergency (ER) | payer SELFPAY ==
--- NOTE | ~2024-08-09 | XR_ITS ---
XR chest 2V Ordering provider: Susie Moyer PA-C History: 23 years Female with . cough, CHILLS, BODY ACHES . Comparison: April 08, 2023 FINDINGS: MEDIASTINUM: The cardiac silhouette is not enlarged. LUNGS: No infiltrates, effusions or pneumothorax. OTHER: No free air under the diaphragm. IMPRESSION: No acute cardiopulmonary pathology. Reviewed, dictated and finalized at location A. UCE INSPECTOR
[2024-08-09 17:14] VITALS: BP 126/82; PULSE 81; RESP 20; TEMP 36.8; O2SAT 100
--- NOTE | 2024-08-09 17:18 | ECG_ITS ---
Test Date: 2024-08-09 17:55:07 Measurements Intervals [place] Rate: 80 P: 59 KS: 152 QRS: 14 QRSD: 76 T: 0 QT: 337 QTc: 389 Interpretive Statements SINUS RHYTHM WITH SINUS ARRHYTHMIA POSSIBLE LEFT ATRIAL ENLARGEMENT [-0.1mV P-WAVE IN V1/V2] NONSPECIFIC T-WAVE ABNORMALITY No previous ECG available for comparison Electronically Signed On 08-13-2024 14:37:18 [employer] BUSINESS REPRESENTATIVE by Mike Collins M.D.
--- NOTE | 2024-08-09 17:18 | ED_ITS ---
HPI - Chest Pain General Chief Complaint: Chest Pain <Susie Moyer PA-C - Last Filed: 08/09/24 17:19> Stated Complaint: body aches/EPSTEIN/Cough/CP <Susie Moyer PA-C - Last Filed: 08/09/24 17:19> Time Seen by Provider: 08/09/24 19:06 <Susie Moyer PA-C - Last Filed: 08/09/24 17:19> Focused HPI: 23-year-old female presents to the emergency department for URI symptoms for 1 day. Patient reports headache, cough, congestion, body aches, generalized malaise and chest pain. Patient states the pain in her chest is in the right chest beneath her breast. 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 GENERAL: Well-appearing, well-nourished, and in no acute distress. HEAD: Normocephalic, atraumatic. CHEST: Clear to auscultation. ?No respiratory distress. HEART: Regular rate and rhythm.? NEURO: ?Alert and oriented x3. Patient screened in triage and initial orders placed.? ?Additional care and disposition to be based upon?diagnostic testing and treatment. <Susie Moyer PA-C - Last Filed: 08/09/24 17:19> Related Data Allergies/Adverse Reactions: Allergies Allergy/AdvReac Type Severity Reaction Status Date / Time morphine Allergy Hives Verified 08/09/24 17:16 <Susie Moyer PA-C - Last Filed: 08/09/24 17:19> Review of Systems Review of Systems: CONSTITUTIONAL: Denies fever ENT: Reports rhinorrhea, congestion CARDIOVASCULAR: Denies chest pain RESPIRATORY: Reports cough. Denies dyspnea. MUSCULOSKELETAL: Reports myalgia. <Constance Ramirez PA-C - Last Filed: 08/09/24 19:20> All systems reviewed & are unremarkable except as noted in HPI and below <Constance Ramirez PA-C - Last Filed: 08/09/24 19:20> PMFSH Past Medical History Medical History: Medical History (Updated 08/09/24 @ 19:16 by Constance Ramirez PA-C) Genital herpes <Susie Moyer PA-C - Last Filed: 08/09/24 17:19> Surgical History Surgical History: Surgical History (Updated 12/15/23 @ 10:51 by Gloria Mendez, KAMILLE) Hx of rectal sphincterotomy Excision single column internal and external hemorrhoids, left lateral anal sphincterotomy 12/07/23 <Susie Moyer PA-C - Last Filed: 08/09/24 17:19> Social History Social History: Social History (Updated 12/15/23 @ 10:51 by KAMILLE Scott) Smoking status: Never smoker Tobacco type: cigarettes Alcohol intake: never Substance use: current Substance use type: marijuana Other substance usage details: Not often Do You Feel Safe in your Home?: Yes Lack of Transportation: No Lack of Food: Never True Current Housing: I Have Housing Concerned About Future Housing: No Difficulty Paying Gas/Electric Bills: No Difficulty Paying for Meds: No Currently Unemployed: No Education: High School Diploma/GED Difficulty w/ Childcare or Family Care: No Living arrangements: with family Occupation/Education: occupation 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 HEAD: Normocephalic, atraumatic. EYES: EOMI. ENT: Nares clear, no rhinorrhea or epistaxis. Mucous membranes moist. CHEST: Clear to auscultation. No respiratory distress. No wheezes rales or rhonchi HEART: Regular rate and rhythm. No murmur heard. Normal peripheral pulses. EXTREMITIES: Normal range of motion. No edema. SKIN: Warm, dry, no rash. NEURO: No focal deficits. Alert and oriented x3. PSYCH: Normal mood and affect <Constance Ramirez PA-C - Last Filed: 08/09/24 19:20> Course Course Emergency Course: Patient updated on her workup and agrees with plan of care <Constance Ramirez PA-C - Last Filed: 08/09/24 19:20> Vital Signs Vital signs: Vital Signs Temperature 98.2 F 08/09/24 17:14 Pulse Rate 81 08/09/24 17:14 Respiratory Rate 20 08/09/24 17:14 Blood Pressure 126/82 08/09/24 17:14 Pulse Oximetry 100 08/09/24 17:14 Oxygen Delivery Room Air 08/09/24 17:14 Temperature 98.2 F 08/09/24 17:14 Pulse Rate 81 08/09/24 17:14 Respiratory Rate 20 08/09/24 17:14 Blood Pressure 126/82 08/09/24 17:14 Pulse Oximetry 100 08/09/24 17:14 Oxygen Delivery Room Air 08/09/24 17:14 <Susie Moyer PA-C - Last Filed: 08/09/24 17:19> Vital Signs Temperature 98.2 F 08/09/24 17:14 Pulse Rate 81 08/09/24 17:14 Respiratory Rate 20 08/09/24 17:14 Blood Pressure 126/82 08/09/24 17:14 Pulse Oximetry 100 08/09/24 17:14 Oxygen Delivery Room Air 08/09/24 17:14 Temperature 98.2 F 08/09/24 17:14 Pulse Rate 81 08/09/24 17:14 Respiratory Rate 20 08/09/24 17:14 Blood Pressure 126/82 08/09/24 17:14 Pulse Oximetry 100 08/09/24 17:14 Oxygen Delivery Room Air 08/09/24 17:14 <VIMAL Brown Last Filed: 08/09/24 19:20> MDM - Chest Pain MDM Narrative Medical decision making narrative: Patient presents the emergency department for cold symptoms ongoing since yesterday. She is afebrile and nontoxic appearing. Oxygen saturations 100% on room air. Lungs are clear on exam. Patient found to be influenza A positive. Chest x-ray is clear. Offered Tamiflu, she will be started on this. Instructed on other continued symptomatic care a viral infection. She was given warnings to return to the ER <Constance Ramirez PA-C - Last Filed: 08/09/24 19:20> Differential Diagnosis Differential diagnosis: Likely costochondritis and other (Pneumonia, influenza, COVID) <VIMAL Brown Last Filed: 08/09/24 19:20> Lab Data Attestation: I reviewed the patient's lab results. <Constance Ramirez PA-C - Last Filed: 08/09/24 19:20> Labs: Lab Results 08/09/24 Range/Units 17:52 Influenza A (RT-PCR) Positive A (Negative) Influenza B (RT-PCR) Negative (Negative) RSV (RT-PCR) Negative (Negative) SARS-CoV-2 RNA (RT-PCR) Negative (Negative) <Susie Moyer PA-C - Last Filed: 08/09/24 17:19> Lab Results 08/09/24 Range/Units 17:52 Influenza A (RT-PCR) Positive A (Negative) Influenza B (RT-PCR) Negative (Negative) RSV (RT-PCR) Negative (Negative) SARS-CoV-2 RNA (RT-PCR) Negative (Negative) <Constance Ramirez PA-C - Last Filed: 08/09/24 19:20> Imaging Data Radiologist's impression: ITS Impressions Chest X-Ray 08/09/24 18:57 IMPRESSION: No acute cardiopulmonary pathology. <Constance Ramirez PA-C - Last Filed: 08/09/24 19:20> Critical Care Time Critical Care Time Critical Care Time: No <Constance Ramirez PA-C - Last Filed: 08/09/24 19:20> Discharge Plan Discharge Clinical Impression: Influenza A <Susie Moyer PA-C - Last Filed: 08/09/24 17:19> Patient Disposition: Home, Self-Care <VIMAL Magallanes Last Filed: 08/09/24 17:19> Condition: Stable <VMIAL Magallanes Last Filed: 08/09/24 17:19> Instructions: Influenza (ED) <VIMAL Magallanes Last Filed: 08/09/24 17:19> Additional Instructions: Return to the emergency department for worsening symptoms, or any other concerns Remain well-hydrated, get plenty of rest. Take Tylenol or Motrin [id number] for pain as needed. Flonase for nasal congestion. Zyrtec for runny nose. Lozenges or Chloraseptic spray for sore throat. Take Tamiflu as prescribed Follow up with your primary care doctor <Susie Moyer PA-C - Last Filed: 08/09/24 17:19> Patient Language: Kazakh <Susie Moyer PA-C - Last Filed: 08/09/24 17:19> Prescriptions: New oseltamivir [Tamiflu] 75 mg capsule 75 mg PO Q12H 5 Days Qty: 10 0RF No Action ibuprofen 800 mg tablet 800 mg PO TID PRN (Reason: pain) 7 Days Qty: 21 0RF acetaminophen 500 mg tablet 1,000 mg PO TID PRN (Reason: yanely) 7 Days Qty: 42 0RF methocarbamol 750 mg tablet 1,500 mg PO TID Qty: 35 0RF lidocaine 5 % adhesive patch,medicated 1 patch topical DAILY Qty: 15 0RF Rx Instructions: leave on most painful area for up to 12 hrs <Susie Moyer PA-C - Last Filed: 08/09/24 17:19> Follow-up/Referrals: UNKNOWN,DOCTOR [Primary Care Provider] - <Susie Moyer PA-C - Last Filed: 08/09/24 17:19> Stand Alone Forms: Work/School Release IP <Susie Moyer PA-C - Last Filed: 08/09/24 17:19>
[2024-08-09 18:31] LABS: Influenza A QL RT-PCR Positive (Negative); Influenza B QL RT-PCR Negative (Negative); RSV RNA, RT-PCR Negative (Negative); SARS-CoV-2 RNA PCR Negative (Negative)
== END 2024-08-09 19:25 | disposition home or self-care (01) ==
LOC: ANHED 19:19
PROVIDERS: Physician Assistant; Emergency Provider Physician Assistant
DX: J10.1 Influenza due to other identified influenza virus with other respiratory manifestations (principal); Z20.822 Contact with and (suspected) exposure to COVID-19; R94.31 Abnormal electrocardiogram [ECG] [EKG]
CPT/HCPCS: 71046; 87637; 93005; 99283

== ENCOUNTER 2024-10-27 08:15 | Emergency (ER) | payer OTHER, SELFPAY ==
--- NOTE | ~2024-10-27 | XR_ITS ---
XR ankle RT min 3V 10/27/2024 09:13 INDICATION: Right ankle pain PROCEDURE: 4 views right ankle COMPARISON: No prior studies for comparison. FINDINGS: Fracture, dislocation or subluxation is not identified. The soft tissues appear within norm al limits. No foreign bodies are identified. IMPRESSION: 1: NO ACUTE BONE OR JOINT ABNORMALITY IDENTIFIED. Reviewed, dictated and finalized at location B.
--- OUTSIDE RECORDS SUMMARY | 2024-10-27 08:18 | XMS_ITS ---
Author Organization [facility] Address [address] [place] [address] Care Team Providers Care Service Aide Name Role Phone Dipak Ceja Primary Care Provider [phone] Migdalia Bateman Unavailable REASON FOR VISIT PRAPARE Assessment Social History PRAPARE Question Answer Notes Date Completed/Updated: 06/19/2024 What is your current housing situation? I have h ousing Are you worried about losing your housing? No What is the highest level of school that you have finished? 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 Check all that apply I do not have problems meeting my needs Has lack of transportation k ept you from medical appointments, meetings, work or from getting things needed for daily living? No How often do you see or talk to people that you care about and feel close to? (For example: talking to friends on the phone, visiting friends or family, going to advent or club meetings) 1 or 2 times a week How stressed are you? Stress is when someone feels tense, nervous, anxious, or can\t sleep at night because their mind is troubled Very much In the past year have you sp ent more than 2 nights in a row in a long-term, shelter, prison center, or juvenile correctional facility? No Are you a refugee? No What country are you from? [place] Do you feel physically and e motionally safe where you currently live? Yes In the past year, have you b een afraid of your partner or ex-partner? No PRAPARE Score: 6 Encounters Encounter Location Date Provider Diagnosis [address] [place] [address] 06/20/2024 Migdalia Bateman Plan Of Treatment No Information Progress Notes * Karen GARCIADOB:[birth year] (23 yo F)Acc No.[id number]:06/20/2024 Patient: Karen SHEFFIELD :2000 A ge:23 Y S ex:Female Address:[address] [place] [address], [id number] Subjective: * Chief Complaints: * Joe HUTCHINSON Assessment * Medical History: * Surgical History: * Hospitalization/Major Diagno stic Procedure: * Social History: S ocial Determinants: Joe De Santiago ate Completed/Updated: 1 08/19/2023, W hat is your current housing situation? I have housing, A re you worried about losing your housing? N o, W hat is the highest level of school that you have finished? H igh school diploma or GED, W hat is your current work situation? 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 Check all that apply?I do not have problems meeting my needs, H as lack of transportation kept you from medical appointments, meetings, work or from getting things needed for daily living? N o, H ow often do you see or talk to people that you care about and feel close to? (For example: talking to friends on the phone, visiting friends or family, going to advent or club meetings) 1 or 2 times a week, H ow stressed are you? Stress is when someone feels tense, nervous, anxious, or can\t sleep at night because their mind is troubled V pavel much, I n the past year have you spent more than 2 nights in a row in a long-term, shelter, prison center, or juvenile correctional facility? N o, A re you a refugee? N o, W hat country are you from[place], D o you feel physically and emotionally safe where you currently live? Y es, I n the past year, have you been afraid of your partner or ex-partner? N o, P RAPARE Score: 6 . * Medications: Objective: * Vitals: * Physical Examination: Assessment: Plan: * Treatment: * Procedure Codes: * true * Date: Generated for Sonja bose/Domo/Chance on: 0 10/27/2024 08:18 AM CDT
--- OUTSIDE RECORDS SUMMARY | 2024-10-27 08:18 | XMS_ITS | Clinical Summary ---
Author Organization [facility] Address [address] [place] [id number] Care Team Providers Care Nursing Information Systems Coordinator Name Role Phone Unknown, Notinfile Unavailable Unavailable Monae Mendez Primary Care Provider [phone] Allergies Active Allergy Reactions Criticality Noted Date Comments Morphine Hives,Urticaria Medium 05/26/2020 Hives Medications valACYclovir (VALTREX) 500 mg tabletIndication s:HSV (herpes simplex virus) anogenital infection Take 1 tablet (500 mg total) by mouth daily 90 tablet 3 4 Active hydrocortisone (ANUSOL-HC) 2.5 % rectal creamIndications :Hemorrhoids, unspecified hemorrhoid type Insert into the rectum 4 (four) times a day as needed for hemorrhoids (rectal discomfort) Apply to affected areas 30 g 4 Active Active Problems Problem Noted Date Diagnosed Date Routine adult health maintenance 09/13/2023 Overview (09/13/2023): Health Maintenance: -PCV20: N/A -Tdap vaccine: 2021 -Influenza vaccine: -Shingles vaccine: N/A -Colonoscopy: N/A -Last WWE: 11/04/21 -Last Mammogram: N/A -Last DEXA: N/A -Last eye exam: N/A -Last MHA: N/A Allergy 12/29/2021 Menstrual changes 12/29/2021 HSV (herpes simplex virus) anogenital infection 11/06/2021 Assessment & Plan (09/14/2023 3:36 PM ENVIRONMENTAL SERVICES LEAD): Refill sent for Valtrex. Continue current management. Resolved Problems Problem Noted Date Diagnosed Date Resolved Date Chest pain with high risk fo r cardiac etiology 12/29/2021 09/13/2023 Close exposure to COVID-19 virus 12/29/2021 09/13/2023 Encounter for supervision of normal first 12/29/2021 09/13/2023 Multiple substance abuse 12/29/202102/2024 with adoption planned 12/29/2021 09/13/2023 Threatened in first trimester 12/29/2021 09/13/2023 Vacuum-assisted vaginal delivery 12/29/2021 09/13/2023 Immunizations Immunization Administration Dates Next Due DTaP 03/21/2006, 3,04/19/2002,02/10/2001 ,2000 Hep A, Ped Unspecified 12/19/2006 Hep A, Pediatric 03/16/2004 Hep B, Adolescent or Pediatric 04/19/2002,2000,2000 HiB 01/18/2003,03/22/2002,02/10/2001 ,2000 IPV 03/21/2006,04/19/2002,02/10/2001 ,2000 Influenza, Unspecified 05/08/2023(Deferr ed: Patient Refused),05/08/2022(Deferred: Patient Refused) MMR 12/19/2006,03/22/2002 Meningococcal Conjugate (Menveo) 06/04/2019,12/07 Pneumococcal Conjugate 7-Valent 01/18/2003,03/22,02/23/2001,2000 Tdap 12/04/2021,04/13/2011 Varicella 04/13/2011,05/10/2002 Surgical History Surgery Date Site/Laterality Comments US ABDOMEN COMPLETE W LIVER DOPPLER (C) 03/14/2018 R ight Family History Medical History Relation Name Comments Hypertension Father Breast cancer Maternal Grandmother Hypertension Mother Ovarian cancer Neg Hx Uterine cancer Neg Hx Relation Name Status Comments Father Alive Maternal Grandmother Mother Alive Social History Tobacco Use Types Packs/Day Years Used Date Smoking Tobacco: Every Day Cigarettes 0.1 1 Smokeless Tobacco: Never AUDIT-C Answer Date Recorded Q1: How often do you have a drink containing alc ohol? Monthly or less 09/14/2023 Q2: How many drinks containi ng alcohol do you have on a typical day when you are drinking? 1 or 2 09/14/2023 Q3: How often do you have si x or more drinks on one occasion? Less than monthly 09/14/2023 PHQ-2 Answer Date Recorded PHQ-2 Total Score (If total score is 3 or more points, staff should administer the PHQ-9) 1 09/14/2023 Personal Safety Answer Date Recorded Have you ever been in or are you currently in a harmful physical or emotional relationship or is someone making you feel afraid or unsafe? Denies 01/27/2023 Comments No Sex and Gender Information Value Date Recorded Sex Assigned at Not on file Legal Sex Female 7:29 AM CDT Gender Identity Not on file Sexual Orientation Not on file Obstetrics History Para Term AB IAB SAB Ectopic Multiple Livin g Live Births 2 1 1 1 1 1 1 Date Outcome GA Total Labor Labor/2nd/3rd Weight Sex Type Anes PTL Pastora A1 A5 Name Clin 2017 IAB TAB 020 Term 40w 0d 3.033 kg (6 lb 11 oz) F Vag-S pont Epidur al Livin g Complications:None Delivery Location:[facility] Last Filed Vital Signs Vital Sign Reading Time Taken Comments Blood Pressure 116/64 09/14/2023 1:00 PM ENVIRONMENTAL SERVICES LEAD Pulse 103 09/14/2023 1:00 PM ENVIRONMENTAL SERVICES LEAD Temperature 36.9 C (98.4 F) 09/14/2023 1:00 PM ENVIRONMENTAL SERVICES LEAD Respiratory Rate 18 09/14/2023 1:00 PM ENVIRONMENTAL SERVICES LEAD Oxygen Saturation 98% 09/14/2023 1:00 PM ENVIRONMENTAL SERVICES LEAD Inhaled Oxygen Concentration - - Weight 75.3 kg (166 lb) 09/14/2023 1:00 PM ENVIRONMENTAL SERVICES LEAD Height 171.5 cm (5' 7.5 ) 09/14/2023 1:00 PM ENVIRONMENTAL SERVICES LEAD Body Mass Index 25.62 09/14/2023 1:00 PM ENVIRONMENTAL SERVICES LEAD Plan of Treatment Health Maintenance Due Date Last Done Comments Pneumococcal vaccine <65 (1 of 1 - PPSV23) 2006 01/18/2003, 03/22/2002, 02/23/2001, Additional history exists HPV Vaccines (1 - 3-dose series) 2015 Chlamydia and Gonorrhea (GC/ CT) Screening 08/10/2022 08/10/2021, 07/10/2020, 07/10/2020, Additional history exists Regular Well Visit/Exam 18-64 11/04/2022 11/04/2021 Covid-19 Vaccine (3 - 2023-2 5 season) 2024 10/12/2022, 04/08/2021 Influenza Vaccine (#1) 2024 Depression Screening 09/14/2024 09/14/2023, 09/14/19 24 Cervical Cancer Screening 11/04/2024 11/04/2021 DTaP/Tdap/Td Vaccine (8 - Td or Tdap) 12/05/2031 12/04/2021, 04/13/2011, 03/21/2006, Additional history exists Hepatitis B Screening Completed 04/19/2002 , 2000, 2000 Varicella Vaccines Completed 04/13/2011, 05/10/2002 Hepatitis C Screening Completed 09/01/2021 Procedures Procedure Name Priority Date/Time Associated Diagnosis Comments HEPATITIS C ANTIBODY Routine 09/01/2021 11:04 AM ENVIRONMENTAL SERVICES LEAD Chlamydia N. GONORRHOEAE/C. TRACHOMATIS AMPLIFICATION STAT 08/10/2021 11:52 AM ENVIRONMENTAL SERVICES LEAD from Last 3 Months or Most Recently Relevant to Health Maintenance Results * Hepatitis C antibody (09/01/2021 11:04 AM ENVIRONMENTAL SERVICES LEAD) Pathologist [facility] Hep C Ab Nonreactive Nonreactive ADOLFO Comment: Interpretive Data Nonreactive: Antibodies to HCV not detected. Does NOT exclude the possibility of recent exposure to HCV. Equivocal: Equivocal for HCV antibodies. Supplemental molecular testing will be automatically performed to determine infection status in accordance with current CDC screening recommendations. Reactive: Positive for HCV antibodies. This may represent current or past HCV infection. Supplemental molecular testing will be automatically performed to determine current infection status in accordance with current CDC screening recommendations. Interpretive data was last revised on 2019. Blood 09/01/2021 11:0 4 AM ENVIRONMENTAL SERVICES LEAD 09/01/2021 2:41 PM ENVIRONMENTAL SERVICES LEAD us Whitney Livingston MD LAB MICROBIOLOGY - GENERAL ORDER IOANA Final Result Performing Organization Address [facility] Co de Phone Number ADOLFO [address] [place] [address] * (ABNORMAL) N. gonorrhoeae/C. trachomatis Amplification Vaginal (08/10/2021 11:52 AM ENVIRONMENTAL SERVICES LEAD) C. trachomatis Detected(A) Not Detected ADOLFO N. gonorrhoeae Not Detected Not Detected ADOLFO Comment: Interpretive Data Testing performed by the [facility]. This assay detects Chlamydia trachomatis and Neisseria gonorrhoeae by nucleic acid amplification testing (NAAT). This test is approved by the [place] Food and Drug Administration and the performance characteristics have been verified by the laboratory. The performance characteristics of this test have not been evaluated in individuals less than 14 years of age. Current Interpretive Data was last revised on 2019. Vaginal (None) 08/10/2021 11 :52 AM ENVIRONMENTAL SERVICES LEAD 08/10/2021 11:55 AM ENVIRONMENTAL SERVICES LEAD Constance XAVIER LAB MICROBIOLOGY - GENERAL ORDERABLES Final Result Performing Organization Address [facility] de Phone Number ADOL[facility] [address] [place] [address] from Last 3 Months or Most Recently Relevant to Health Maintenance Insurance [facility] Care Teams Nursing Information Systems Coordinator Relationship Specialty Start Date End Date Monae Mendez PA [address] [place] [address] PCP - General Family Medicine 09/06/23 Unknown, Notinfile 05/23/18
--- OUTSIDE RECORDS SUMMARY | 2024-10-27 08:18 | XMS_ITS | Referral Summary ---
Author Organization [facility] Address [address] [place] [id number] Care Team Providers Care Manufacturing Executive Name Role Phone Unknown, Notinfile Unavailable Unavailable Monae Mendez Primary Care Provider [phone] Allergies Active Allergy Reactions Criticality Noted Date [...] 11/06/2021 Assessment & Plan (09/14/2023 3:36 PM ASTRONAUT [employer] SPECIALIST): Refill sent for Valtrex. Continue current management. [...] Conjugate 7-Valent 01/18/2003,03/22,02/23/2001,2000 Tdap 12/04/2021,04/13/2011 Varicella 04/13/2011,05/10/2002 Social History Tobacco Use Types Packs/Day Years [...] on file Sexual Orientation Not on file Last Filed Vital Signs Vital Sign Reading Time Taken Comments Blood Pressure 116/64 09/14/2023 1:00 PM ASTRONAUT [employer] SPECIALIST Pulse 103 09/14/2023 1:00 PM ASTRONAUT [employer]ION SPECIALIST Temperature 36.9 C (98.4 F) 09/14/2023 1:00 PM ASTRONAUT [employer]ION SPECIALIST Respiratory Rate 18 09/14/2023 1:00 PM ASTRONAUT [employer]ION SPECIALIST Oxygen Saturation 98% 09/14/2023 1:00 PM ASTRONAUT [employer]ION SPECIALIST Inhaled Oxygen Concentration - - Weight 75.3 kg (166 lb) 09/14/2023 1:00 PM ASTRONAUT M[employer]ION SPECIALIST Height 171.5 cm (5' 7.5 ) 09/14/2023 1:00 PM ASTRONAUT [employer]ION SPECIALIST Body Mass Index 25.62 09/14/2023 1:00 PM ASTRONAUT [employer]ION SPECIALIST Plan of Treatment Not on file Procedures Procedure Name Priority Date/Time Associated Diagnosis Comments HEPATITIS C ANTIBODY Routine 09/01/2021 11:04 AM ASTRONAUT [employer]ION SPECIALIST Chlamydia N. GONORRHOEAE/C. TRACHOMATIS AMPLIFICATION STAT 08/10/2021 11:52 AM ASTRONAUT [employer]ION SPECIALIST from Last 3 Months or Most Recently Relevant to Health Maintenance Results * Hepatitis C antibody (09/01/2021 11:04 AM ASTRONAUT [employer]ION SPECIALIST) Hep C Ab Nonreactive Nonreactive ADOLFO DE JESUS Comment: Interpretive Data Nonreactive: Antibodies to HCV [...] on 2019. Blood 09/01/2021 11:0 4 AM ASTRONAUT MISSION SPECIALIST 09/01/2021 2:41 PM ASTRONAUT [employer] SPECIALIST Whitney Livingston MD LAB MICROBIOLOGY - GENERAL ORDER IOANA Final Result Performing Organization Address [facility] Co de Phone Number ADOL[facility] [address] [place] [address] * (ABNORMAL) N. gonorrhoeae/C. trachomatis Amplification Vaginal (08/10/2021 11:52 AM ASTRONAUT [employer]ION SPECIALIST) C. trachomatis Detected(A) Not Detected ADOLFO N. gonorrhoeae Not Detected Not Detected ADOLFO Comment: Interpretive Data Testing performed by the [facility]. This assay detects Chlamydia trachomatis and Neisseria gonorrhoeae by nucleic acid amplification testing (NAAT). This test is approved by the [facility] Food and Drug Administration and the performance characteristics have been verified by the laboratory. The performance characteristics of this test have not been evaluated in individuals less than 14 years of age. Current Interpretive Data was last revised on 2019. Vaginal (None) 08/10/2021 11 :52 AM ASTRONAUT [employer]ION SPECIALIST 08/10/2021 11:55 AM ASTRONAUT M[employer]ION SPECIALIST Constance XAVIER LAB MICROBIOLOGY - GENERAL ORDERABLES Final Result Performing Organization Address [facility] de Phone Number ADOLFO [address] [place] [address] from Last 3 Months or Most Recently Relevant to Health Maintenance Insurance [facility] Care Teams Manufacturing Executive Relationship Specialty Start Date End Date Monae Mendez PA [address] [place], [place] [id number] PCP - General Family Medicine 09/06/23 Unknown, Notinfile 05/23/18
--- OUTSIDE RECORDS SUMMARY | 2024-10-27 08:18 | XMS_ITS | Clinical Summary ---
Author Organization [facility] [employer] Address [address] [place] [address] Care Team Providers Care Underwriting Service Representative Name Role Phone Unknown, Provider Primary Care Provider Unavaila ble Source Comments [facility] [employer],non-owned Affiliates and Associated Physician Practices is amultiple site organization consisting of ambulatory clinics and hospital sitesin [place], [place], [place] and [place]. This disclosure is being madepursuant to the Care Everywhere program and may not contain all information available regarding this patient. Last updated 18.[facility] [employer] Allergies Active Allergy Reactions Criticality Noted Date Comments Morphine Urticaria Medium 04/14/2021 Medications Be aware that medications may not be up to date on this document. Always verify current medications with the patient. No known medications Social History Tobacco Use Types Packs/Day Years Used Date Smoking Tobacco: Never Smokeless Tobacco: Never Sex and Gender Information Value Date Recorded Sex Assigned at Not on file Gender Identity Not on file Sexual Orientation Not on file Last Filed Vital Signs Vital Sign Reading Time Taken Comments Blood Pressure 100/68 04/14/2021 12:33 PM CDT Pulse 72 04/14/2021 12:33 PM CDT Temperature - - Respiratory Rate 18 04/14/2021 12:33 PM CDT Oxygen Saturation 99% 04/14/2021 12:33 PM CDT Inhaled Oxygen Concentration - - Weight 56.2 kg (124 lb) 04/14/2021 12:33 PM CDT Height 172 cm (5' 7.72 ) 04/14/2021 12:33 PM CDT Body Mass Index 19.01 04/14/2021 12:33 PM CDT Plan of Treatment Health Maintenance Due Date Last Done Comments PAP SMEAR 2000 HIV SCREENING 2015 HPV VACCINE (1 - 3-dose series) 2015 CHLAMYDIA/GONORRHEA SCREENING 2016 HEPATITIS C SCREENING 09/16/2018 DTAP/TDAP/TD VACCINES (1 - Tdap) 2019 HEPATITIS B VACCINE (1 of 3 - 19+ 3-dose series) 2019 COVID-19 VACCINE (1 - 2023-2 5 season) 2024 INFLUENZA VACCINE (#1) 2024 DEPRESSION SCREENING 08/08/2024 ZOSTER VACCINE (1 of 2) 2050 HIB VACCINE Aged Out No longer eligi ble based on patient's age to complete this topic MENINGOCOCCAL (Group B) VACC INE SHARED DECISION-MAKING Aged Out No longer eligibl e based on patient's age to complete this topic MENINGOCOCCAL GROUPS A/C/Y/W VACCINE Aged Out No longer eligible b ased on patient's age to complete this topic PNEUMOCOCCAL VACCINE Aged Out No long er eligible based on patient's age to complete this topic Care Teams Underwriting Service Representative Relationship Specialty Start Date End Date Unknown, Provider PCP - General 04/14/21
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
--- OUTSIDE RECORDS SUMMARY | 2024-10-27 08:18 | XMS_ITS | Patient Health Record ---
Author Organization [facility] Address [address] [place] [address] Care Team Providers Care Farm Marketer Name Role Phone Dipak Ceja Primary Care Provider Migdalia Bateman Allergies Allergen (clinical drug ingredient) Drug/Non Drug Allergy documented on EMR Reaction Allergy Type Onset Date Status morphine Morphine Unknown Drug Allergy Active Reason For Referral No Information Medications Medication SIG (Take, Route, Fr equency, [...] Status Risk Notes Problem Recurrent major depression ([id number]) Major depression, recurrent (F33.9) Active confirmed Encounters Encounter Location Date Provider Diagnosis [address] [place] [address] 06/20/2024 Migdalia Bateman [address] [address] 06/26/2024 Dipak Ceja Major depression, recurrent F33.9 [...] number to the 24-hour crisis line at [facility]. Questions addressed. Client verbalized understanding of all [...] off if possible, cannabis. Plan Of Treatment No Information Insurance Providers Payer Name Payer Address Payer Phone Subscriber Number Group Number Insured Name Patient Relationship to Insured Coverage Start Date Coverage End Date [facility] Att[facility] Claims Department [address] [place] [address] [phone] [id number] Karen Garcia Self - patient is the insured 4 [facility] [address] [place] [address] [phone] [id number] Karen Garcia Self - patient is the insured 4 Medical (General) History Surgical History Surgery Date(Month/Year) hemroid removal 12/2023 Hospitalization History Reason Date(Month/Year) child 2019
[2024-10-27 08:37] VITALS: BP 130/90; PULSE 89; RESP 18; O2SAT 100
--- NOTE | 2024-10-27 08:54 | ED_ITS ---
HPI - General Adult General Chief complaint: Extremity Injury, Lower Stated complaint: running & twisted my right ankle Time Seen by Provider: 10/27/24 08:22 History of Present Illness HPI narrative: 24-year-old female presenting to the emergency department for evaluation for right ankle pain. Patient states her yd is a steep slope and she was running and injure her right ankle last night. Patient states she just rested at last night and did not do a lot of weight-bearing. Patient states this morning when she was getting ready for work she had worsening leg pain. Patient states she has rolled her ankle previously but has no prior fractures of that ankle. Patient denies any other pain or injury, denies striking her head denies any loss of consciousness. Related Data Allergies Allergy/AdvReac Type Severity Reaction Status Date / Time morphine Allergy Hives Verified 10/27/24 08:16 Review of Systems Review of Systems: All systems reviewed & are unremarkable except as noted in HPI and below PMFSH Past Medical History Medical History (Updated 10/27/24 @ 09:28 by Marc Yee MD) Genital herpes Surgical History Surgical History (Updated 12/15/23 @ 10:51 by KAMILLE Scott) Hx of rectal sphincterotomy Excision single column internal and external hemorrhoids, left lateral anal sphincterotomy 12/07/23 Social History Social History (Updated 12/15/23 @ 10:51 by KAMILLE Scott) Smoking status: Never smoker Tobacco type: cigarettes Alcohol intake: never Substance use: current Substance use type: marijuana Other substance usage details: Not often Do You Feel Safe in your Home?: Yes Lack of Transportation: No Lack of Food: Never True Current Housing: I Have Housing Concerned About Future Housing: No Difficulty Paying Gas/Electric Bills: No Difficulty Paying for Meds: No Currently Unemployed: No Education: High School Diploma/GED Difficulty w/ Childcare or Family Care: No Living arrangements: with family Occupation/Education: occupation 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 HEAD: normocephalic, atraumatic. EYES: PERRLA/EOMI, conjunctivae clear. NOSE: Normal no drainage EARS:TMS clear with good light reflex. THROAT: Pharynx clear, no exudate. NECK: Supple. No adenopathy, no masses. RESPIRATORY: Airway patent, respirations nonlabored. Clear to auscultation bilaterally, no rales, rhonchi, wheezing. CARDIOVASCULAR: Regular rate and rhythm without murmurs rubs or gallops. ABDOMINAL: Soft, nontender, nondistended, normal bowel sounds MUSCULOSKELETAL: Right ankle tenderness to palpation laterally. No proximal tib-fib and no foot tenderness. No significant right ankle edema or deformity NEURO: Alert. Cranial nerves II through XII intact. Good gait. Good coordination SKIN: Warm, dry. Normal Color Course Vital Signs Vital signs: Vital Signs Pulse Rate 89 10/27/24 08:37 Respiratory Rate 18 10/27/24 08:37 Blood Pressure 130/90 10/27/24 08:37 Pulse Oximetry 100 10/27/24 08:37 Pulse Rate 89 10/27/24 09:44 Respiratory Rate 16 10/27/24 09:44 Blood Pressure 140/99 H 10/27/24 09:44 Pulse Oximetry 100 10/27/24 09:44 Medical Decision Making MDM Narrative Medical decision making narrative: 24-year-old female present to the emergency department for evaluation for right ankle pain. Ankle x-ray was negative for acute fracture dislocation. Patient was provided Fermin wrap for comfort and crutches for nonweightbearing. Patient up to the results of the workup and plan for treatment for home. All questions concerns were addressed. Differential Diagnosis Differential Diagnosis: Ankle sprain, ankle fracture, proximal tib-fib injury, foot contusion, foot fracture Vital Signs Vital Signs: Vital Signs Pulse Rate 89 10/27/24 08:37 Respiratory Rate 18 10/27/24 08:37 Blood Pressure 130/90 10/27/24 08:37 Pulse Oximetry 100 10/27/24 08:37 Pulse Rate 89 10/27/24 09:44 Respiratory Rate 16 10/27/24 09:44 Blood Pressure 140/99 H 10/27/24 09:44 Pulse Oximetry 100 10/27/24 09:44 Imaging Data Radiologist's impression: Impressions Ankle X-Ray 10/27/24 09:16 IMPRESSION: 1: NO ACUTE BONE OR JOINT ABNORMALITY IDENTIFIED. Discharge Plan Discharge Clinical Impression: Ankle sprain Patient Disposition: Home, Self-Care Condition: Stable Instructions: Antibiotic Form, Ankle Sprain (DC), Crutch Instructions (ED) Additional Instructions: Your x-ray was negative for acute fracture or dislocation. Fermin wrap for comfort and ankle stability. Crutches for nonweightbearing. Tylenol and ibuprofen for pain control. Ice therapy as directed. Have close follow-up with your primary care physician. If you have any worsening symptoms then please call or return to the emergency department. Patient Language: Sinhala Prescriptions: No Action ibuprofen 800 mg tablet 800 mg PO TID PRN (Reason: pain) 7 Days Qty: 21 0RF acetaminophen 500 mg tablet 1,000 mg PO TID PRN (Reason: yanely) 7 Days Qty: 42 0RF methocarbamol 750 mg tablet 1,500 mg PO TID Qty: 35 0RF lidocaine 5 % adhesive patch,medicated 1 patch topical DAILY Qty: 15 0RF Rx Instructions: leave on most painful area for up to 12 hrs oseltamivir [Tamiflu] 75 mg capsule 75 mg PO Q12H 5 Days Qty: 10 0RF Follow-up/Referrals: PHYSICIAN,SURVEY PROJECT MANAGER [Primary Care Provider] - Stand Alone Forms: Work/School Release IP
[2024-10-27 09:44] VITALS: BP 140/99; PULSE 89; RESP 16; O2SAT 100
== END 2024-10-27 09:46 | disposition home or self-care (01) ==
PROVIDERS: Emergency Provider Emergency Medicine
DX: S93.401A Sprain of unspecified ligament of right ankle, initial encounter (principal); X50.9XXA Other and unspecified overexertion or strenuous movements or postures, initial encounter
CPT/HCPCS: 73610; 99283

== ENCOUNTER 2025-02-18 18:44 | Emergency (ER) | payer SELFPAY ==
--- OUTSIDE RECORDS SUMMARY | 2025-02-18 18:46 | XMS_ITS | Referral Summary ---
Author Organization [facility] Address [address] [place] [address] Care Team Providers Care Egg Setter Name Role Phone Unknown, Notinfile Unavailable Unavailable Monae Mendez Primary Care Provider [phone] Allergies Active Allergy Reactions Criticality Noted Date [...] 11/06/2021 Assessment & Plan (09/14/2023 3:36 PM VP TALENT MANAGEMENT): Refill sent for Valtrex. Continue current management. [...] Comments Blood Pressure 116/64 09/14/2023 1:00 PM VP TALENT MANAGEMENT Pulse 103 09/14/2023 1:00 PM VP TALENT MANAGEMENT Temperature 36.9 C (98.4 F) 09/14/2023 1:00 PM VP TALENT MANAGEMENT Respiratory Rate 18 09/14/2023 1:00 PM VP TALENT MANAGEMENT Oxygen Saturation 98% 09/14/2023 1:00 PM VP TALENT MANAGEMENT Inhaled Oxygen Concentration - - Weight 75.3 kg (166 lb) 09/14/2023 1:00 PM VP TALENT MANAGEMENT Height 171.5 cm (5' 7.5) 09/14/2023 1:00 PM VP TALENT MANAGEMENT Body Mass Index 25.62 09/14/2023 1:00 PM VP TALENT MANAGEMENT Plan of Treatment Not on file Procedures Procedure Name Priority Date/Time Associated Diagnosis Comments HEPATITIS C ANTIBODY Routine 09/01/2021 11:04 AM VP TALENT MANAGEMENT Chlamydia N. GONORRHOEAE/C. TRACHOMATIS AMPLIFICATION STAT 08/10/2021 11:52 AM VP TALENT MANAGEMENT from Last 3 Months or Most Recently Relevant to Health Maintenance Results * Hepatitis C antibody (09/01/2021 11:04 AM VP TALENT MANAGEMENT) Hep C Ab Nonreactive Nonreactive ADOLFO DE [...] on 2019. Blood 09/01/2021 11:0 4 AM VP TALENT MANAGEMENT 09/01/2021 2:41 PM VP TALENT MANAGEMENT Whitney Livingston MD LAB MICROBIOLOGY - GENERAL ORDER IOANA Final Result Performing Organization Address [facility] Co de Phone Number ADOLFO [address] [place] [address] * (ABNORMAL) N. gonorrhoeae/C. trachomatis Amplification Vaginal (08/10/2021 11:52 AM VP TALENT MANAGEMENT) C. trachomatis Detected(A) Not Detected ADOLFO N. gonorrhoeae Not Detected Not Detected ADOLFO Comment: Interpretive Data Testing performed by the [facility]. This assay detects Chlamydia trachomatis and Neisseria gonorrhoeae by nucleic acid amplification testing (NAAT). This test is approved by the [facility] Food and Drug Administration and the performance characteristics have been verified by the laboratory. The performance characteristics of this test have not been evaluated in individuals less than 14 years of age. Current Interpretive Data was last revised on 2019. Vaginal (None) 08/10/2021 11 :52 AM VP TALENT MANAGEMENT 08/10/2021 11:55 AM VP TALENT MANAGEMENT Constance XAVIER LAB MICROBIOLOGY - GENERAL ORDERABLES Final Result Performing Organization Address [facility] de Phone Number ADOLFO [address] [place] [address] from Last 3 Months or Most Recently Relevant to Health Maintenance Insurance [facility] Care Teams Egg Setter Relationship Specialty Start Date End Date Monae Mendez PA [address] [place], [place] [address] PCP - General Family Medicine 09/06/23 Unknown, Notinfile 05/23/18
--- OUTSIDE RECORDS SUMMARY | 2025-02-18 18:46 | XMS_ITS ---
Author Organization Unknown Plan of Treatment Description Planned Activity Planned Timing [facility] is a provider organization who partners directly with Health Plans and provides integrated primary care, behavioral health, and social studies teacher for an attributed population Letter encounter to patientTelephone encounter Jan 31, 2025Jul 2024 Patient Care team information Name Category Status Period Participants - - Proposed period not known -
--- OUTSIDE RECORDS SUMMARY | 2025-02-18 18:46 | XMS_ITS | Clinical Summary ---
Author Organization [facility] Address [address] [place] [address] Care Team Providers Care Feeder Catcher Name Role Phone Kirill Gan PRICING STRATEGIST-RELAY SHOP SUPERVISOR Primary Care Provider [phone] Source Comments [facility],non-owned Affiliates and Associated Physician Practices is amultiple site organization consisting of ambulatory clinics and hospital sitesin [place], [place], [place] and [place]. This disclosure is being madepursuant to the Care Everywhere program and may not contain all information available regarding this patient. Last updated 18.[facility] Allergies Active Allergy Reactions Criticality Noted Date Comments Morphine Urticaria Medium 04/14/2021 Medications * Be aware that medications may not be up to date on this document. Alwaysverify current medications with the patient. No known medications Social History Tobacco Use Types Packs/Day Years Used Date Smoking Tobacco: Never Smokeless Tobacco: Never Comments Unknown Sex and Gender Information Value Date Recorded Sex Assigned at Not on file Legal Sex Female 12:27 PM CDT Gender Identity Not on file Sexual [...] 12:33 PM CDT Height 172 cm (5' 7.72) 04/14/2021 12:33 PM CDT Body Mass Index 19.01 04/14/2021 12:33 PM CDT Plan of Treatment Health Maintenance Due Date Last Done Comments HIV SCREENING 2015 HPV VACCINE (1 - 3-dose series) 2015 CHLAMYDIA/GONORRHEA SCREENING 2016 HEPATITIS C SCREENING 09/16/2018 DTAP/TDAP/TD VACCINES (1 - Tdap) 2019 HEPATITIS B VACCINE (1 of 3 - 19+ 3-dose series) 2019 PAP SMEAR 2021 COVID-19 VACCINE (1 - 2023-2 5 season) 2024 DEPRESSION SCREENING 08/08/2024 INFLUENZA VACCINE (#1) 2025 ZOSTER VACCINE (1 of 2) 2050 HIB [...] on patient's age to complete this topic Insurance * Guarantor: KAREN GARCIA Account Type Relation to Patient Date of Phone Billing Address Personal/Family [address] [place] [address] [facility] SELF PAY NO INSURANCE Member Subscriber Plan / Payer (Ef fective for All Dates) Name:Karen Garcia Member ID:Not on file Relation to Subscriber:Not on file Name:KAREN GARCIA Subscriber ID:Not on file Address: [address] [place] [address] Payer ID:Not on file Group ID:Not on file Type:Self Pay Address: [place], [place] * Guarantor: KAREN GARCIA Account Type Relation to Patient Date of Phone Billing Address Personal/Family [address] [place] [address] [facility] SELF PAY NO INSURANCE Member Subscriber Plan / Payer (Ef fective for All Dates) Name:Karen Garcia Member ID:Not on file Relation to Subscriber:Not on file Name:KAREN GARCIA Subscriber ID:Not on file Address: [address] [place] [address] Payer ID:Not on file Group ID:Not on file Type:Self Pay Address: [place], [place] * Guarantor: KAREN GARCIA Account Type Relation to Patient Date of Phone Billing Address Personal/Family [address] [place] [address] [facility] SELF PAY NO INSURANCE Member Subscriber Plan / Payer (Ef fective for All Dates) Name:Tiffani Garciatney Member ID:Not on file Relation to Subscriber:Not on file Name:TIFFANI GARCIATNEY Subscriber ID:Not on file Address: [address] [place] [address] Payer ID:Not on file Group ID:Not on file Type:Self Pay Address: [place], [place] Care Teams Feeder Catcher Relationship Specialty Start Date End Date Kirill Gan APRN-CNP PCP - General 04/14/21
--- OUTSIDE RECORDS SUMMARY | 2025-02-18 18:46 | XMS_ITS | Clinical Summary ---
Author Organization [facility] Address [address] [place] [address] Care Team Providers Care National Recruiter Name Role Phone Unknown, Notinfile Unavailable Unavailable Monae Mendez Primary Care Provider [phone] Allergies Active Allergy Reactions Criticality Noted Date [...] 11/06/2021 Assessment & Plan (09/14/2023 3:36 PM PROFESSIONAL TUTOR): Refill sent for Valtrex. Continue current management. [...] pont Epidur al Livin g Complications:None Delivery Location:[facility] Last Filed Vital Signs Vital Sign Reading Time Taken Comments Blood Pressure 116/64 09/14/2023 1:00 PM PROFESSIONAL TUTOR Pulse 103 09/14/2023 1:00 PM PROFESSIONAL TUTOR Temperature 36.9 C (98.4 F) 09/14/2023 1:00 PM PROFESSIONAL TUTOR Respiratory Rate 18 09/14/2023 1:00 PM PROFESSIONAL TUTOR Oxygen Saturation 98% 09/14/2023 1:00 PM PROFESSIONAL TUTOR Inhaled Oxygen Concentration - - Weight 75.3 kg (166 lb) 09/14/2023 1:00 PM PROFESSIONAL TUTOR Height 171.5 cm (5' 7.5) 09/14/2023 1:00 PM PROFESSIONAL TUTOR Body Mass Index 25.62 09/14/2023 1:00 PM PROFESSIONAL TUTOR Plan of Treatment Health Maintenance Due Date Last Done Comments Pneumococcal vaccine <65 (1 of 1 - PPSV23) 2006 01/18/2003, 03/22/2002, 02/23/2001, Additional history exists HPV Vaccines (1 - 3-dose series) 2015 Chlamydia and Gonorrhea (GC/ CT) Screening 08/10/2022 08/10/2021, 07/10/2020, 07/10/2020, Additional history exists Regular Well Visit/Exam 18-64 11/04/2022 11/04/2021 Covid-19 Vaccine (3 - 2023-2 5 season) 2024 10/12/2022, 04/08/2021 Depression Screening 09/14/2024 09/14/2023, 09/14/19 24 Cervical Cancer Screening 11/04/2024 11/04/2021 Influenza Vaccine (Season Ended) 2025 DTaP/Tdap/Td Vaccine (8 - Td or Tdap) 12/05/2031 12/04/2021, 04/13/2011, 03/21/2006, Additional history exists Hepatitis B Screening Completed 04/19/2002 , 2000, 2000 Varicella Vaccines Completed 04/13/2011, 05/10/2002 Hepatitis C Screening Completed 09/01/2021 Procedures Procedure Name Priority Date/Time Associated Diagnosis Comments HEPATITIS C ANTIBODY Routine 09/01/2021 11:04 AM PROFESSIONAL TUTOR Chlamydia N. GONORRHOEAE/C. TRACHOMATIS AMPLIFICATION STAT 08/10/2021 11:52 AM PROFESSIONAL TUTOR from Last 3 Months or Most Recently Relevant to Health Maintenance Results * Hepatitis C antibody (09/01/2021 11:04 AM PROFESSIONAL TUTOR) Pathologist [facility] Hep C Ab Nonreactive Nonreactive ADOLFO Comment: [...] on 2019. Blood 09/01/2021 11:0 4 AM PROFESSIONAL TUTOR 09/01/2021 2:41 PM PROFESSIONAL TUTOR us Whitney Livingston MD LAB MICROBIOLOGY - GENERAL ORDER IOANA Final Result Performing Organization Address [facility] Co de Phone Number ADOLFO [address] [place] [address] * (ABNORMAL) N. gonorrhoeae/C. trachomatis Amplification Vaginal (08/10/2021 11:52 AM PROFESSIONAL TUTOR) C. trachomatis Detected(A) Not Detected ADOLFO N. gonorrhoeae Not Detected Not Detected ADOLFO Comment: Interpretive Data Testing performed by the [facility]. This assay detects Chlamydia trachomatis [...] 2019. Vaginal (None) 08/10/2021 11 :52 AM PROFESSIONAL TUTOR 08/10/2021 11:55 AM PROFESSIONAL TUTOR Constance XAVIER LAB MICROBIOLOGY - GENERAL ORDERABLES Final Result Performing Organization Address [facility] de Phone Number ADOLFO [address] [place] [address] from Last 3 Months or Most Recently Relevant to Health Maintenance Insurance [facility] Care Teams National Recruiter Relationship Specialty Start Date End Date Monea Mendez PA [address] [place] [address] PCP - General Family Medicine 09/06/23 Unknown, Notinfile 05/23/18
--- OUTSIDE RECORDS SUMMARY | 2025-02-18 18:46 | XMS_ITS | Patient Health Record ---
Author Organization [facility] Address [address] [place] [address] Care Team Providers Care Insole Filler Name Role Phone Dipak Ceja Primary Care Provider [phone] Migdalia Bateman Allergies Allergen (clinical drug ingredient) Drug/Non Drug Allergy documented on EMR Reaction Allergy Type Onset Date Status morphine Morphine Unknown Drug Allergy Active Reason For Referral No Information Medications Medication SIG (Take, Route, Fr equency, Duration) Notes Start Date End Date Status FLUoxetine HCl 20 MG 1 capsule Orally On ce a day; Duration: 30 days 06/26/2024 Active valACYclovir HCl 500 MG 1 tablet Orally Once a day Active Social History Tobacco Use: Social History Observation Description Date Details (start date - stop date) Never Smoker NA - NA Tobacco Control (Standard) Question Answer Notes Tobacco use: Nonsmoker Problems Problem Type SNOMED Code ICD Code Onset Dates Problem Status W/U Status Risk Notes Problem Major depression, recurrent (F33.9) Active confirmed Encounters Encounter Location Date Provider Diagnosis [address] [place] [address] 06/26/2024 Dipak Ceja Major depression, recurrent F33.[address] [address] 06/20/2024 Migdalia Bateman Assessments Encounter Date Diagnosis (ICD Code) Assessment [...] number to the 24-hour crisis line at [facility]. Questions addressed. Client verbalized understanding [...] Insured Coverage Start Date Coverage End Date [facility] Attn Claims Department [address] [place] [address] [phone] [id number] Karen Garcia Self - patient is the insured 4 [facility] Att[facility] Claims Department [address] [place] [address] [phone] [id number] Karen Garcia Self - patient is the insured 4 Medical (General) History Surgical History Surgery Date(Month/Year) hemroid removal 12/2023 Hospitalization History Reason Date(Month/Year) child 2019
[2025-02-18 18:55] VITALS: BP 143/92; PULSE 75; RESP 18; TEMP 36.9; O2SAT 100
--- NOTE | 2025-02-18 20:48 | PC.NURSE ---
NA when called for evaluation
--- NOTE | 2025-02-18 21:03 | PC.NURSE ---
Na to call for room placement
--- OUTSIDE RECORDS SUMMARY | 2025-02-18 21:18 | XMS_ITS | Clinical Summary ---
Author Organization [facility] Address [address] [place] [address] Care Team Providers Care Online Merchandising Manager Name Role Phone Unknown, Notinfile Unavailable Unavailable Monae Mendez Primary Care Provider [phone] Allergies Active Allergy Reactions Criticality Noted Date [...] 11/06/2021 Assessment & Plan (09/14/2023 3:36 PM TUBE DRAWER): Refill sent for Valtrex. Continue current management. [...] Epidur al Livin g Complications:None Delivery Location:[facility] Last Filed Vital Signs Vital Sign Reading Time Taken Comments Blood Pressure 116/64 09/14/2023 1:00 PM TUBE DRAWER Pulse 103 09/14/2023 1:00 PM TUBE DRAWER Temperature 36.9 C (98.4 F) 09/14/2023 1:00 PM TUBE DRAWER Respiratory Rate 18 09/14/2023 1:00 PM TUBE DRAWER Oxygen Saturation 98% 09/14/2023 1:00 PM TUBE DRAWER Inhaled Oxygen Concentration - - Weight 75.3 kg (166 lb) 09/14/2023 1:00 PM TUBE DRAWER Height 171.5 cm (5' 7.5) 09/14/2023 1:00 PM TUBE DRAWER Body Mass Index 25.62 09/14/2023 1:00 PM TUBE DRAWER Plan of Treatment Health Maintenance Due Date [...] HEPATITIS C ANTIBODY Routine 09/01/2021 11:04 AM TUBE DRAWER Chlamydia N. GONORRHOEAE/C. TRACHOMATIS AMPLIFICATION STAT 08/10/2021 11:52 AM TUBE DRAWER from Last 3 Months or Most Recently Relevant to Health Maintenance Results * Hepatitis C antibody (09/01/2021 11:04 AM TUBE DRAWER) Pathologist [facility] Hep C Ab Nonreactive Nonreactive ADOLFO Comment: [...] on 2019. Blood 09/01/2021 11:0 4 AM TUBE DRAWER 09/01/2021 2:41 PM TUBE DRAWER us Whitney Livingston MD LAB MICROBIOLOGY - GENERAL ORDER IOANA Final Result Performing Organization Address [facility] Co de Phone Number ADOLFO [address] [place] [address] * (ABNORMAL) N. gonorrhoeae/C. trachomatis Amplification Vaginal (08/10/2021 11:52 AM TUBE DRAWER) C. trachomatis Detected(A) Not Detected ADOLFO N. gonorrhoeae Not Detected Not Detected ADOLFO Comment: Interpretive Data Testing performed by the [facility]. This assay detects Chlamydia trachomatis and [...] 2019. Vaginal (None) 08/10/2021 11 :52 AM TUBE DRAWER 08/10/2021 11:55 AM TUBE DRAWER Constance XAVIER LAB MICROBIOLOGY - GENERAL ORDERABLES Final Result Performing Organization Address [facility] de Phone Number ADOLFO [address] [place] [address] from Last 3 Months or Most Recently Relevant to Health Maintenance Insurance [facility] Care Teams Online Merchandising Manager Relationship Specialty Start Date End Date Monae Mendez PA [address] [place] [address] PCP - General Family Medicine 09/06/23 Unknown, Notinfile 05/23/18
--- OUTSIDE RECORDS SUMMARY | 2025-02-18 21:18 | XMS_ITS ---
Author Organization Unknown Plan of Treatment Description Planned Activity Planned Timing [facility] is a provider organization who partners directly with Health Plans and provides integrated primary care, behavioral health, and nursing home social worker for an attributed population Letter encounter to patientTelephone encounter Jan 31, 2025Jul 2024 Patient Care team information Name Category Status Period Participants - - Proposed period not known -
--- OUTSIDE RECORDS SUMMARY | 2025-02-18 21:18 | XMS_ITS | Clinical Summary ---
Author Organization [facility] Address [address] [place] [address] Care Team Providers Care Quality Systems Specialist Name Role Phone Kirill Gan CIRCLE SAW OPERATOR-MEDICAL SECRETARY RECEPTIONIST Primary Care Provider [phone] [phone] [facility],non-owned Affiliates and Associated Physician Practices is amultiple site organization consisting of ambulatory clinics and hospital sitesin [place], [place], [place] and [place]. This disclosure is being madepursuant to the Care Everywhere program and may not contain all information available regarding this patient. Last updated 18.[facility] Allergies Active Allergy Reactions Criticality Noted Date [...] of Phone Billing Address Personal/Family [address] [place] [address] [facility] SELF PAY NO INSURANCE Member Subscriber Plan / Payer (Ef fective for All Dates) Name:Karen Garcia Member ID:Not on file Relation to Subscriber:Not on file Name:KAREN GARCIA Subscriber ID:Not on file Address: [address] [place] [address] Payer ID:Not on file Group ID:Not on file Type:Self Pay Address: [place], [place] * Guarantor: KAREN GARCIA Account Type Relation to Patient Date of Phone Billing Address Personal/Family [address] [place] [address] [facility] SELF PAY NO INSURANCE Member Subscriber Plan / Payer (Ef fective for All Dates) Name:Karen Garcia Member ID:Not on file Relation to Subscriber:Not on file Name:KAREN GARCIA Subscriber ID:Not on file Address: [address] [place] [address] Payer ID:Not on file Group ID:Not on file Type:Self Pay Address: [place], [place] * Guarantor: KAREN GARCIA Account Type Relation to Patient Date of Phone Billing Address Personal/Family [address] [place] [address] [facility] SELF PAY NO INSURANCE Member Subscriber Plan / Payer (Ef fective for All Dates) Name:Tiffani Garciatney Member ID:Not on file Relation to Subscriber:Not on file Name:TIFFANI GARCIATNEY Subscriber ID:Not on file Address: [address] [place] [address] Payer ID:Not on file Group ID:Not on file Type:Self Pay Address: [place], [place] Care Teams Quality Systems Specialist Relationship Specialty Start Date End Date Kirill Gan APRN-CNP PCP - General 04/14/21
--- OUTSIDE RECORDS SUMMARY | 2025-02-18 21:18 | XMS_ITS | Referral Summary ---
Author Organization [facility] Address [address] [place] [address] Care Team Providers Care Carbide Die Maker Name Role Phone Unknown, Notinfile Unavailable Unavailable Monae Mendez Primary Care Provider [phone] [phone] Allergies Active Allergy Reactions Criticality Noted Date [...] 11/06/2021 Assessment & Plan (09/14/2023 3:36 PM HEATER PLANER OPERATOR): Refill sent for Valtrex. Continue current management. [...] Comments Blood Pressure 116/64 09/14/2023 1:00 PM HEATER PLANER OPERATOR Pulse 103 09/14/2023 1:00 PM HEATER PLANER OPERATOR Temperature 36.9 C (98.4 F) 09/14/2023 1:00 PM HEATER PLANER OPERATOR Respiratory Rate 18 09/14/2023 1:00 PM HEATER PLANER OPERATOR Oxygen Saturation 98% 09/14/2023 1:00 PM HEATER PLANER OPERATOR Inhaled Oxygen Concentration - - Weight 75.3 kg (166 lb) 09/14/2023 1:00 PM HEATER PLANER OPERATOR Height 171.5 cm (5' 7.5) 09/14/2023 1:00 PM HEATER PLANER OPERATOR Body Mass Index 25.62 09/14/2023 1:00 PM HEATER PLANER OPERATOR Plan of Treatment Not on file Procedures Procedure Name Priority Date/Time Associated Diagnosis Comments HEPATITIS C ANTIBODY Routine 09/01/2021 11:04 AM HEATER PLANER OPERATOR Chlamydia N. GONORRHOEAE/C. TRACHOMATIS AMPLIFICATION STAT 08/10/2021 11:52 AM HEATER PLANER OPERATOR from Last 3 Months or Most Recently Relevant to Health Maintenance Results * Hepatitis C antibody (09/01/2021 11:04 AM HEATER PLANER OPERATOR) Hep C Ab Nonreactive Nonreactive AD[facility] DE [...] on 2019. Blood 09/01/2021 11:0 4 AM HEATER PLANER OPERATOR 09/01/2021 2:41 PM HEATER PLANER OPERATOR Whitney Livingston MD LAB MICROBIOLOGY - GENERAL ORDER IOANA Final Result Performing Organization Address [facility] Co de Phone Number ADOL[facility] [address] [place] [address] * (ABNORMAL) N. gonorrhoeae/C. trachomatis Amplification Vaginal (08/10/2021 11:52 AM HEATER PLANER OPERATOR) C. trachomatis Detected(A) Not Detected AD[facility] N. gonorrhoeae Not Detected Not Detected AD[facility] Comment: Interpretive Data Testing performed by the [facility]. This assay detects Chlamydia trachomatis and Neisseria gonorrhoeae by nucleic acid amplification testing (NAAT). This test is approved by the [facility] Food and Drug Administration and the performance characteristics have been verified by the laboratory. The performance characteristics of this test have not been evaluated in individuals less than 14 years of age. Current Interpretive Data was last revised on 2019. Vaginal (None) 08/10/2021 11 :52 AM HEATER PLANER OPERATOR 08/10/2021 11:55 AM HEATER PLANER OPERATOR Constance XAVIER LAB MICROBIOLOGY - GENERAL ORDERABLES Final Result Performing Organization Address [facility] de Phone Number ADOLFO [address] [place] [address] from Last 3 Months or Most Recently Relevant to Health Maintenance Insurance [facility] Care Teams Carbide Die Maker Relationship Specialty Start Date End Date Monae Mendez PA [address] [place], [place] [address] PCP - General Family Medicine 09/06/23 Unknown, Notinfile 05/23/18
== END 2025-02-18 21:03 | disposition left against medical advice (07) ==
DX: H92.02 Otalgia, left ear (principal)
CPT/HCPCS: 99199

== ENCOUNTER 2025-02-19 08:39 | Emergency (ER) | payer SELFPAY ==
[2025-02-19 08:45] VITALS: BP 139/90; PULSE 64; RESP 16; TEMP 36.8; O2SAT 100
--- OUTSIDE RECORDS SUMMARY | 2025-02-19 08:47 | XMS_ITS | Patient Health Record ---
Author Organization [facility] Address [address] [place] [address] Care Team Providers Care Bottle Washer Machine Name Role Phone Dipak Ceja Primary Care [...] confirmed Encounters Encounter Location Date Provider Diagnosis [address] [place] [address] 06/26/2024 Dipak Ceja Major depression, recurrent F33.[address] [address] 06/20/2024 Migdalia Bateman Assessments Encounter Date Diagnosis [...] number to the 24-hour crisis line at [facility]. Questions addressed. Client verbalized understanding of all [...] Insured Coverage Start Date Coverage End Date [facility] Attn Claims Department [address] [place] [address] [phone] [id number] Karen Garcia Self - patient is the insured 4 [facility] Attn Claims Department [address] [place] [address] [phone] [id number] Karen Garcia Self - patient is the insured 4 Medical (General) History Surgical History Surgery Date(Month/Year) hemroid removal 12/2023 Hospitalization History Reason Date(Month/Year) child 2019
--- OUTSIDE RECORDS SUMMARY | 2025-02-19 08:47 | XMS_ITS | Clinical Summary ---
Author Organization [facility] Address [address] [place] [address] Care Team Providers Care Data Analysis Manager Name Role Phone Unknown, Notinfile Unavailable Unavailable Monae Mendez Primary Care Provider [phone] Allergies Active Allergy Reactions Criticality Noted Date [...] 11/06/2021 Assessment & Plan (09/14/2023 3:36 PM DIRECTOR OF ACCREDITATION): Refill sent for Valtrex. Continue current management. [...] pont Epidur al Livin g Complications:None Delivery Location:[facility] Last Filed Vital Signs Vital Sign Reading Time Taken Comments Blood Pressure 116/64 09/14/2023 1:00 PM DIRECTOR OF ACCREDITATION Pulse 103 09/14/2023 1:00 PM DIRECTOR OF ACCREDITATION Temperature 36.9 C (98.4 F) 09/14/2023 1:00 PM DIRECTOR OF ACCREDITATION Respiratory Rate 18 09/14/2023 1:00 PM DIRECTOR OF ACCREDITATION Oxygen Saturation 98% 09/14/2023 1:00 PM DIRECTOR OF ACCREDITATION Inhaled Oxygen Concentration - - Weight 75.3 kg (166 lb) 09/14/2023 1:00 PM DIRECTOR OF ACCREDITATION Height 171.5 cm (5' 7.5) 09/14/2023 1:00 PM DIRECTOR OF ACCREDITATION Body Mass Index 25.62 09/14/2023 1:00 PM DIRECTOR OF ACCREDITATION Plan of Treatment Health Maintenance Due Date [...] HEPATITIS C ANTIBODY Routine 09/01/2021 11:04 AM DIRECTOR OF ACCREDITATION Chlamydia N. GONORRHOEAE/C. TRACHOMATIS AMPLIFICATION STAT 08/10/2021 11:52 AM DIRECTOR OF ACCREDITATION from Last 3 Months or Most Recently Relevant to Health Maintenance Results * Hepatitis C antibody (09/01/2021 11:04 AM DIRECTOR OF ACCREDITATION) Pathologist [facility] Hep C Ab [...] on 2019. Blood 09/01/2021 11:0 4 AM DIRECTOR OF ACCREDITATION 09/01/2021 2:41 PM DIRECTOR OF ACCREDITATION us Whitney Livingston MD LAB MICROBIOLOGY - GENERAL ORDER IOANA Final Result Performing Organization Address [facility] Co de Phone Number ADOLFO [address] [place] [address] * (ABNORMAL) N. gonorrhoeae/C. trachomatis Amplification Vaginal (08/10/2021 11:52 AM DIRECTOR OF ACCREDITATION) C. trachomatis Detected(A) Not Detected AD[facility] N. gonorrhoeae Not Detected Not Detected ADOLFO Comment: Interpretive Data Testing performed by the [facility]. This assay detects Chlamydia trachomatis and [...] 2019. Vaginal (None) 08/10/2021 11 :52 AM DIRECTOR OF ACCREDITATION 08/10/2021 11:55 AM DIRECTOR OF ACCREDITATION Constance XAVIER LAB MICROBIOLOGY - GENERAL ORDERABLES Final Result Performing Organization Address [facility] de Phone Number ADOLFO [address] [place] [address] from Last 3 Months or Most Recently Relevant to Health Maintenance Insurance [facility] Care Teams Data Analysis Manager Relationship Specialty Start Date End Date Monae Mendez PA [address] [place] [address] PCP - General Family Medicine 09/06/23 Unknown, Notinfile 05/23/18
--- OUTSIDE RECORDS SUMMARY | 2025-02-19 08:47 | XMS_ITS | Referral Summary ---
Author Organization [facility] Address [address] [place] [address] Care Team Providers Care Stone Polisher Hand Name Role Phone Unknown, Notinfile Unavailable Unavailable Monae Mendez Primary Care Provider [phone] [phone] Allergies Active Allergy Reactions Criticality Noted Date [...] 11/06/2021 Assessment & Plan (09/14/2023 3:36 PM AIRPORT OPERATIONS DUTY MANAGER): Refill sent for Valtrex. Continue current management. [...] Comments Blood Pressure 116/64 09/14/2023 1:00 PM AIRPORT OPERATIONS DUTY MANAGER Pulse 103 09/14/2023 1:00 PM AIRPORT OPERATIONS DUTY MANAGER Temperature 36.9 C (98.4 F) 09/14/2023 1:00 PM AIRPORT OPERATIONS DUTY MANAGER Respiratory Rate 18 09/14/2023 1:00 PM AIRPORT OPERATIONS DUTY MANAGER Oxygen Saturation 98% 09/14/2023 1:00 PM AIRPORT OPERATIONS DUTY MANAGER Inhaled Oxygen Concentration - - Weight 75.3 kg (166 lb) 09/14/2023 1:00 PM AIRPORT OPERATIONS DUTY MANAGER Height 171.5 cm (5' 7.5) 09/14/2023 1:00 PM AIRPORT OPERATIONS DUTY MANAGER Body Mass Index 25.62 09/14/2023 1:00 PM AIRPORT OPERATIONS DUTY MANAGER Plan of Treatment Not on file Procedures Procedure Name Priority Date/Time Associated Diagnosis Comments HEPATITIS C ANTIBODY Routine 09/01/2021 11:04 AM AIRPORT OPERATIONS DUTY MANAGER Chlamydia N. GONORRHOEAE/C. TRACHOMATIS AMPLIFICATION STAT 08/10/2021 11:52 AM AIRPORT OPERATIONS DUTY MANAGER from Last 3 Months or Most Recently Relevant to Health Maintenance Results * Hepatitis C antibody (09/01/2021 11:04 AM AIRPORT OPERATIONS DUTY MANAGER) Hep C Ab Nonreactive Nonreactive [facility]FO DE [...] on 2019. Blood 09/01/2021 11:0 4 AM AIRPORT OPERATIONS DUTY MANAGER 09/01/2021 2:41 PM AIRPORT OPERATIONS DUTY MANAGER Whitney Livingston MD LAB MICROBIOLOGY - GENERAL ORDER IOANA Final Result Performing Organization Address [facility] Co de Phone Number ADOLFO [address] [place] [address] * (ABNORMAL) N. gonorrhoeae/C. trachomatis Amplification Vaginal (08/10/2021 11:52 AM AIRPORT OPERATIONS DUTY MANAGER) C. trachomatis Detected(A) Not Detected [facility] N. gonorrhoeae Not Detected Not Detected ADOLFO Comment: Interpretive Data Testing performed by the [facility]. This assay detects Chlamydia trachomatis and Neisseria gonorrhoeae by nucleic acid amplification testing (NAAT). This test is approved by the [facility] Food and Drug Administration and the performance characteristics have been verified by the laboratory. The performance characteristics of this test have not been evaluated in individuals less than 14 years of age. Current Interpretive Data was last revised on 2019. Vaginal (None) 08/10/2021 11 :52 AM AIRPORT OPERATIONS DUTY MANAGER 08/10/2021 11:55 AM AIRPORT OPERATIONS DUTY MANAGER Constance XAVIER LAB MICROBIOLOGY - GENERAL ORDERABLES Final Result Performing Organization Address [facility] de Phone Number ADOLFO [address] [place] [address] from Last 3 Months or Most Recently Relevant to Health Maintenance Insurance [facility] Care Teams Stone Polisher Hand Relationship Specialty Start Date End Date Monae Mendez PA [address] [place], [place] [address] PCP - General Family Medicine 09/06/23 Unknown, Notinfile 05/23/18
--- OUTSIDE RECORDS SUMMARY | 2025-02-19 08:47 | XMS_ITS | Clinical Summary ---
Author Organization [facility] [employer] Address [address] [place] [address] Care Team Providers Care Oxygen Equipment Aide Name Role Phone Unknown, Provider Primary Care Provider Unavaila ble Source Comments [facility] [employer],non-owned Affiliates and Associated Physician Practices is amultiple site organization consisting of ambulatory clinics and hospital sitesin [place], [place], [place] and [place]. This disclosure is being madepursuant to the Care Everywhere program and may not contain all information available regarding this patient. Last updated 18.[facility] [employer] Allergies Active Allergy Reactions Criticality Noted [...] of Phone Billing Address Personal/Family [address] [place] [address] [facility] SELF PAY NO INSURANCE Member Subscriber Plan / Payer (Ef fective for All Dates) Name:Karen Garcia Member ID:Not on file Relation to Subscriber:Not on file Name:KAREN GARCIA Subscriber ID:Not on file Address: [address] [place] [address] Payer ID:Not on file Group ID:Not on file Type:Self Pay Address: [place], [place] * Guarantor: KAREN GARCIA Account Type Relation to Patient Date of Phone Billing Address Personal/Family [address] [place] [address] [facility] SELF PAY NO INSURANCE Member Subscriber Plan / Payer (Ef fective for All Dates) Name:Tiffani Garciatney Member ID:Not on file Relation to Subscriber:Not on file Name:TIFFANI GARCIATNEY Subscriber ID:Not on file Address: [address] [place] [address] Payer ID:Not on file Group ID:Not on file Type:Self Pay Address: [place], [place] * Guarantor: KAREN GARCIA Account Type Relation to Patient Date of Phone Billing Address Personal/Family [address] [place] [address] [facility] SELF PAY NO INSURANCE Member Subscriber Plan / Payer (Ef fective for All Dates) Name:Karen Garcia Member ID:Not on file Relation to Subscriber:Not on file Name:RADHAKAREN Subscriber ID:Not on file Address: [address] [place] [address] Payer ID:Not on file Group ID:Not on file Type:Self Pay Address: [place], [place] Care Teams Oxygen Equipment Aide Relationship Specialty Start Date End Date Unknown, Provider PCP - General 04/14/21
--- NOTE | 2025-02-19 09:11 | ED.EAR ---
HPI - Ear Problem General Chief complaint: Ear Stated complaint: Ear pain Time Seen by Provider: 02/19/25 08:58 Source: patient Mode of arrival: ambulatory Limitations: no limitations History of Present Illness HPI Narrative: Patient is a 24-year-old female who presents the ED with report of left ear pain. Patient reports having pain throughout her left ear for the past 1 week. Reports fullness and congestion of ear, decreased hearing. Denies significant pain of right ear. Denies feeling ill otherwise. Denies cough, fevers. Related Data Allergies Allergy/AdvReac Type Severity Reaction Status Date / Time morphine Allergy Hives Verified 02/18/25 18:55 Review of Systems Review of Systems: All systems reviewed & are unremarkable except as noted in HPI. All systems reviewed & are unremarkable except as noted in HPI and below PMFSH Past Medical History Medical History Genital herpes Surgical History Surgical History Hx of rectal sphincterotomy Excision single column internal and external hemorrhoids, left lateral anal sphincterotomy 12/07/23 Social History Social History Smoking status: Never smoker Tobacco type: cigarettes Alcohol intake: never Substance use: current Substance use type: marijuana Other substance usage details: Not often Do You Feel Safe in your Home?: Yes Lack of Transportation: No Lack of Food: Never True Current Housing: I Have Housing Concerned About Future Housing: No Difficulty Paying Gas/Electric Bills: No Difficulty Paying for Meds: No Currently Unemployed: No Education: High School Diploma/GED Difficulty w/ Childcare or Family Care: No Living arrangements: with family Occupation/Education: occupation 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 HEAD: Normocephalic, atraumatic. ENT: Bilateral cerumen impaction. Unable to visualize TM on either side. Some discomfort with manipulation of L ear pinna. RESPIRATORY: Airway patent, respirations nonlabored. CARDIOVASCULAR: Regular rate and rhythm MUSCULOSKELETAL: Moves all extremities. No gross deformities. SKIN: Warm, dry, normal color. NEURO: A&O X3. Speech clear. PSYCHIATRIC: Appropriate mood and affect. Normal interaction. Course Vital Signs Vital signs: Vital Signs Temperature 98.3 F 02/19/25 08:45 Pulse Rate 64 02/19/25 08:45 Respiratory Rate 16 02/19/25 08:45 Blood Pressure 139/90 02/19/25 08:45 Pulse Oximetry 100 02/19/25 08:45 Oxygen Delivery Room Air 02/19/25 08:45 Temperature 98.3 F 02/19/25 08:45 Pulse Rate 64 02/19/25 08:45 Respiratory Rate 16 02/19/25 08:45 Blood Pressure 139/90 02/19/25 08:45 Pulse Oximetry 100 02/19/25 08:45 Oxygen Delivery Room Air 02/19/25 08:45 Medical Decision Making MDM Narrative Medical decision making narrative: Exam consistent with bilateral cerumen impaction. Debrox ear drops and irrigation performed, attempted to dislodge cerumen with ear currette, however patient very tender and sensitive to touch. Performed multiple rounds of debrox and was able to remove a large amount of cerumen, but still with some covering TMs erasto. Advised will treat for external ear infection with ofloxacin ear drops, but encouraged patient to continue Debrox ear drops and irrigation at home. Advised to not put anything into her ears. Will refer to ENT. Given return precautions. She agrees with plan. Discharged in stable condition. Medical Records Medical records reviewed: Yes I reviewed the external patient's medical records. Vital Signs Vital Signs: Vital Signs Temperature 98.3 F 02/19/25 08:45 Pulse Rate 64 02/19/25 08:45 Respiratory Rate 16 02/19/25 08:45 Blood Pressure 139/90 02/19/25 08:45 Pulse Oximetry 100 02/19/25 08:45 Oxygen Delivery Room Air 02/19/25 08:45 Temperature 98.3 F 02/19/25 08:45 Pulse Rate 64 02/19/25 08:45 Respiratory Rate 16 02/19/25 08:45 Blood Pressure 139/90 02/19/25 08:45 Pulse Oximetry 100 02/19/25 08:45 Oxygen Delivery Room Air 02/19/25 08:45 Discharge Plan Discharge Clinical Impression: Bilateral impacted cerumen Otitis externa Qualifiers: Otitis externa type: unspecified type Chronicity: acute Laterality: bilateral Qualified Code(s): H60.503 - Unspecified acute noninfective otitis externa, bilateral Patient Disposition: Home Condition: Stable Instructions: Antibiotic Form, Swimmer's Ear (ED), Earache (ED) Additional Instructions: Continue over the counter Debrox ear drops at home to loosen ear wax. Utilize antibiotic ear drops as prescribed. Continue tylenol and ibuprofen as needed for pain. Follow-up with your primary care doctor and/or ENT for further evaluation needed. Patient Language: Belgian Prescriptions: New ofloxacin 0.3 % drops 10 drp EACH EAR DAILY 7 Days Qty: 5 0RF No Action ibuprofen 800 mg tablet 800 mg PO TID PRN (Reason: pain) 7 Days Qty: 21 0RF acetaminophen 500 mg tablet 1,000 mg PO TID PRN (Reason: yanely) 7 Days Qty: 42 0RF methocarbamol 750 mg tablet 1,500 mg PO TID Qty: 35 0RF lidocaine 5 % adhesive patch,medicated 1 patch topical DAILY Qty: 15 0RF Rx Instructions: leave on most painful area for up to 12 hrs oseltamivir [Tamiflu] 75 mg capsule 75 mg PO Q12H 5 Days Qty: 10 0RF Follow-up/Referrals: Kayden Mckenna MD [Physician] - (ENT) PHYSICIAN,PROCESSING ASSISTANT [Primary Care Provider] - Stand Alone Forms: Work/School Release IP Time of Disposition: 11:40
--- OUTSIDE RECORDS SUMMARY | 2025-02-19 09:18 | XMS_ITS | Clinical Summary ---
Author Organization [facility] [employer] Address [address] [place] [address] Care Team Providers Care Fixed Wing Aircraft Crew Chief Name Role Phone Unknown, Provider Primary Care Provider Unavaila ble Source Comments [facility] [employer],non-owned Affiliates and Associated Physician Practices is amultiple site organization consisting of ambulatory clinics and hospital sitesin [place], [place] and [place]. This disclosure is being madepursuant to the Care Everywhere program and may not contain all information available regarding this patient. Last updated 18.[facility] [employer] Allergies Active Allergy Reactions Criticality Noted Date [...] of Phone Billing Address Personal/Family [address] [place] [address] [facility] PAY NO INSURANCE Member Subscriber Plan / Payer (Ef fective for All Dates) Name:Karen Garcia Member ID:Not on file Relation to Subscriber:Not on file Name:KAREN GARCIA Subscriber ID:Not on file Address: [address] [place] [address] Payer ID:Not on file Group ID:Not on file Type:Self Pay Address: [place], [place] * Guarantor: KAREN GARCIA Account Type Relation to Patient Date of Phone Billing Address Personal/Family [address] [place] [address] [facility] NO INSURANCE Member Subscriber Plan / Payer (Ef fective for All Dates) Name:Tiffani Garciatney Member ID:Not on file Relation to Subscriber:Not on file Name:TIFFANI GARCIATNEY Subscriber ID:Not on file Address: [address] [place] [address] Payer ID:Not on file Group ID:Not on file Type:Self Pay Address: [place], [place] * Guarantor: KAREN GARCIA Account Type Relation to Patient Date of Phone Billing Address Personal/Family [address] [place] [address] [facility] NO INSURANCE Member Subscriber Plan / Payer (Ef fective for All Dates) Name:Karen Garcia Member ID:Not on file Relation to Subscriber:Not on file Name:RADHAKAREN Subscriber ID:Not on file Address: [address] [place] [address] Payer ID:Not on file Group ID:Not on file Type:Self Pay Address: [place], [place] Care Teams Fixed Wing Aircraft Crew Chief Relationship Specialty Start Date End Date Unknown, Provider PCP - General 04/14/21
--- OUTSIDE RECORDS SUMMARY | 2025-02-19 09:18 | XMS_ITS | Clinical Summary ---
Author Organization [facility] Address [address] [place] [id number] Care Team Providers Care Cattle Care Worker Name Role Phone Unknown, Notinfile Unavailable Unavailable Monae Mendez Primary Care Provider [phone] Allergies Active Allergy Reactions Criticality Noted Date [...] 11/06/2021 Assessment & Plan (09/14/2023 3:36 PM MECHANICAL SERVICE TECHNICIAN): Refill sent for Valtrex. Continue current management. [...] pont Epidur al Livin g Complications:None Delivery Location:[facility] Last Filed Vital Signs Vital Sign Reading Time Taken Comments Blood Pressure 116/64 09/14/2023 1:00 PM MECHANICAL SERVICE TECHNICIAN Pulse 103 09/14/2023 1:00 PM MECHANICAL SERVICE TECHNICIAN Temperature 36.9 C (98.4 F) 09/14/2023 1:00 PM MECHANICAL SERVICE TECHNICIAN Respiratory Rate 18 09/14/2023 1:00 PM MECHANICAL SERVICE TECHNICIAN Oxygen Saturation 98% 09/14/2023 1:00 PM MECHANICAL SERVICE TECHNICIAN Inhaled Oxygen Concentration - - Weight 75.3 kg (166 lb) 09/14/2023 1:00 PM MECHANICAL SERVICE TECHNICIAN Height 171.5 cm (5' 7.5) 09/14/2023 1:00 PM MECHANICAL SERVICE TECHNICIAN Body Mass Index 25.62 09/14/2023 1:00 PM MECHANICAL SERVICE TECHNICIAN Plan of Treatment Health Maintenance Due Date [...] HEPATITIS C ANTIBODY Routine 09/01/2021 11:04 AM MECHANICAL SERVICE TECHNICIAN Chlamydia N. GONORRHOEAE/C. TRACHOMATIS AMPLIFICATION STAT 08/10/2021 11:52 AM MECHANICAL SERVICE TECHNICIAN from Last 3 Months or Most Recently Relevant to Health Maintenance Results * Hepatitis C antibody (09/01/2021 11:04 AM MECHANICAL SERVICE TECHNICIAN) Pathologist [facility] Hep C Ab Nonreactive Nonreactive ADOLFO Comment: [...] on 2019. Blood 09/01/2021 11:0 4 AM MECHANICAL SERVICE TECHNICIAN 09/01/2021 2:41 PM MECHANICAL SERVICE TECHNICIAN us Whitney Livingston MD LAB MICROBIOLOGY - GENERAL ORDER IOANA Final Result Performing Organization Address [facility] Co de Phone Number ADOL[facility] [address] [place] [address] * (ABNORMAL) N. gonorrhoeae/C. trachomatis Amplification Vaginal (08/10/2021 11:52 AM MECHANICAL SERVICE TECHNICIAN) C. trachomatis Detected(A) Not Detected ADOLFO N. gonorrhoeae Not Detected Not Detected ADOLFO Comment: Interpretive Data Testing performed by the [facility]. This assay detects Chlamydia trachomatis [...] 2019. Vaginal (None) 08/10/2021 11 :52 AM MECHANICAL SERVICE TECHNICIAN 08/10/2021 11:55 AM MECHANICAL SERVICE TECHNICIAN Constance XAVIER LAB MICROBIOLOGY - GENERAL ORDERABLES Final Result Performing Organization Address [facility] de Phone Number ADOL[facility] [address] [place] [address] from Last 3 Months or Most Recently Relevant to Health Maintenance Insurance [facility] Care Teams Cattle Care Worker Relationship Specialty Start Date End Date Monae Mendez PA [address] [place] [address] PCP - General Family Medicine 09/06/23 Unknown, Notinfile 05/23/18
--- OUTSIDE RECORDS SUMMARY | 2025-02-19 09:18 | XMS_ITS | Referral Summary ---
Author Organization [facility] Address [address] [place] [id number] Care Team Providers Care Software Engineer Advisor Name Role Phone Unknown, Notinfile Unavailable Unavailable Monae Mendez Primary Care Provider [phone] Allergies Active Allergy Reactions Criticality Noted Date [...] 11/06/2021 Assessment & Plan (09/14/2023 3:36 PM BROTH MIXER): Refill sent for Valtrex. Continue current management. [...] Comments Blood Pressure 116/64 09/14/2023 1:00 PM BROTH MIXER Pulse 103 09/14/2023 1:00 PM BROTH MIXER Temperature 36.9 C (98.4 F) 09/14/2023 1:00 PM BROTH MIXER Respiratory Rate 18 09/14/2023 1:00 PM BROTH MIXER Oxygen Saturation 98% 09/14/2023 1:00 PM BROTH MIXER Inhaled Oxygen Concentration - - Weight 75.3 kg (166 lb) 09/14/2023 1:00 PM BROTH MIXER Height 171.5 cm (5' 7.5) 09/14/2023 1:00 PM BROTH MIXER Body Mass Index 25.62 09/14/2023 1:00 PM BROTH MIXER Plan of Treatment Not on file Procedures Procedure Name Priority Date/Time Associated Diagnosis Comments HEPATITIS C ANTIBODY Routine 09/01/2021 11:04 AM BROTH MIXER Chlamydia N. GONORRHOEAE/C. TRACHOMATIS AMPLIFICATION STAT 08/10/2021 11:52 AM BROTH MIXER from Last 3 Months or Most Recently Relevant to Health Maintenance Results * Hepatitis C antibody (09/01/2021 11:04 AM BROTH MIXER) Hep C Ab Nonreactive Nonreactive ADOLFO DE [...] on 2019. Blood 09/01/2021 11:0 4 AM BROTH MIXER 09/01/2021 2:41 PM BROTH MIXER Whitney Livingston MD LAB MICROBIOLOGY - GENERAL ORDER IOANA Final Result Performing Organization Address [facility] Co de Phone Number AD[facility] [address] [place] [address] * (ABNORMAL) N. gonorrhoeae/C. trachomatis Amplification Vaginal (08/10/2021 11:52 AM BROTH MIXER) C. trachomatis Detected(A) Not Detected ADOLFO N. gonorrhoeae Not Detected Not Detected ADOLFO Comment: Interpretive Data Testing performed by the [facility]. This assay detects Chlamydia trachomatis and Neisseria gonorrhoeae by nucleic acid amplification testing (NAAT). This test is approved by the [facility] Food and Drug Administration and the performance characteristics have been verified by the laboratory. The performance characteristics of this test have not been evaluated in individuals less than 14 years of age. Current Interpretive Data was last revised on 2019. Vaginal (None) 08/10/2021 11 :52 AM BROTH MIXER 08/10/2021 11:55 AM BROTH MIXER Constance XAVIER LAB MICROBIOLOGY - GENERAL ORDERABLES Final Result Performing Organization Address [facility] de Phone Number ADOLFO [address] [place] [address] from Last 3 Months or Most Recently Relevant to Health Maintenance Insurance [facility] Care Teams Software Engineer Advisor Relationship Specialty Start Date End Date Mnoae Mendez PA [address] [place], [place] [phone] PCP - General Family Medicine 09/06/23 Unknown, Notinfile 05/23/18
[2025-02-19] MEDS: CARBAMIDE PEROXIDE 6.5% OT SOLN 15 ML BTL 5 DROP EACH EAR (09:35)
[2025-02-19] MEDS: HYDROGEN PEROXIDE 3% SOLN(*SP) 473 ML BOTTLE (10:45)
[2025-02-19] MEDS: ACETAMINOPHEN 500 MG TABLET 1000 MG PO (11:24)
[2025-02-19] MEDS: IBUPROFEN 600 MG TABLET PO (11:24)
[2025-02-19 11:55] VITALS: BP 120/78; PULSE 66; RESP 16; O2SAT 100
[2025-02-19] MEDS: OFLOXACIN 0.3% OPHTH SOLN 5 ML BTL 3 DROP EACH EAR (11:58)
== END 2025-02-19 11:55 | disposition home or self-care (01) ==
PROVIDERS: Emergency Provider Physician Assistant
DX: H60.503 Unspecified acute noninfective otitis externa, bilateral (principal); H61.23 Impacted cerumen, bilateral
CPT/HCPCS: 69209; 99283; A9270